=== PATIENT | male | born 1985 | race Caucasian/White ===

== ENCOUNTER 2016-07-21 05:59 | Inpatient (IN) | payer OTHER ==
[~2016-07-21] VITALS: Ht 180.3 cm; Wt 95.0 kg
[2016-07-21 06:47] LABS: MEAN CORPUSCULAR HEMOGLOBIN 32.9 pg (27.0-33.0); MEAN CORPUSCULAR HGB CONC 34.9 g/dl (32.0-36.5); MEAN CORPUSCULAR VOLUME 94.4 fl (80.0-96.0); RED CELL DISTRIBUTION WIDTH 12.4 % (11.5-14.5); WHITE BLOOD COUNT 9.8 K/mm3 (4.0-10.0)
[2016-07-21 06:59] LABS: AMPHETAMINES LEVEL URINE NEGATIVE (NEGATIVE); BENZODIAZEPINES URINE NEGATIVE (NEGATIVE); COCAINE METABOLITE URINE NEGATIVE (NEGATIVE); M-AMPHETAMINES LEVEL URINE NEGATIVE (NEGATIVE); OPIATES URINE NEGATIVE (NEGATIVE); TRICYCLIC ANTIDEPRESS URINE NEGATIVE (NEGATIVE)
[2016-07-21 07:16] LABS: ALBUMIN/GLOBULIN RATIO 1.33 (1.00-1.93); ALKALINE PHOSPHATASE 91 U/L (45-117); ALT/SGPT 32 U/L (12-78); ANION GAP 10 MEQ/L (8-16); AST/SGOT 22 U/L (15-37); BILIRUBIN,DIRECT 0.1 MG/DL (0.0-0.2); BILIRUBIN,TOTAL 0.2 MG/DL (0.2-1.0); BLOOD UREA NITROGEN 11 MG/DL (7-18); CALCIUM LEVEL 8.3 MG/DL (8.5-10.1); CARBON DIOXIDE LEVEL 25 MEQ/L (21-32); CHLORIDE LEVEL 110 MEQ/L (98-107); CREATININE FOR GFR 1.14 MG/DL (0.70-1.30); GLOMERULAR FILTRATION RATE > 60.0 (>60); GLUCOSE, FASTING 98 MG/DL (70-105); POTASSIUM SERUM 4.1 MEQ/L (3.5-5.1); SODIUM LEVEL 145 MEQ/L (136-145)
[2016-07-21] MEDS ORDERED: MOM 30ML SUSPENSION UDC PO PRN (12:30)
[2016-07-21] MEDS ORDERED: MAALOX 30 ML SUSP *UDC PO PRN (12:30)
--- NOTE | 2016-07-21 14:43 | EDDOCDS ---
Nurse's Notes [facility] Name: Steve Simmons Age: 31 yrs Sex: Male : 1985 Arrival Date: 07/21/2016 Time: 05:59 Bed [facility] Private MD: Diagnosis: Major depressive disorder, single episode Presentation: 07/21 06:03 Presenting complaint: police report, called to residence by neighbor, report pt was in sls1 domestic dispute with SO, state he went into hallway with showcase maker knife and made threats to harm himself. Pt and SO recently . Pt denies SI or HI, denies events happened Police also report pt living in deplorable conditions. Mental Health Triage Level: Level 2: The patient was brought to the ED for evaluation because of a legal pickup order. Adult Sepsis Screening: The patient does not have new or worsening altered mentation. Patient's respiratory rate is less than 22. Systolic blood pressure is greater than 100. Patient has a qSOFA score of 0- Negative Sepsis Screen. Status: Patient is not a dental service technician or dependent. Suicide/Homicide risk assessment- Patient denies SI and HI but presents with another emotional, behavioral or other mental health complaint. The patient reports that he/she has not been admitted to an inpatient mental health facility in the last 30 days. The patient reports that he/she does not have a recent or current history of substance abuse. The patient reports that he/she has no prior history of suicide attempt and/or organized plan. The patient reports that he/she has experienced a significant life altering event in the last 30 days. The patient reports that he/she lacks adequate social support. Transition of care: patient was received from. 06:03 Acuity: JEN Level 3 sls1 06:03 Method Of Arrival: Police Car sls1 Triage Assessment: 06:05 General: Appears unkempt, Behavior is cooperative, restless. Pain: Denies pain. Pt sls1 Declines HIV testing. The patient is triaged at the bedside. See Assessment in Nurses Notes section of ED record. Neurological: Level of Consciousness is awake, alert. Respiratory: Airway is patent Respiratory effort is even, unlabored, Respiratory pattern is regular, symmetrical. Derm: pt has multiple scabs to area. Historical: - Allergies: no known allergies; - Home Meds: 1. none - PMHx: none; - PSHx: none; - Social history: Smoking status: Patient uses tobacco products, current every day smoker. No barriers to communication noted, The patient speaks fluent Mauritian, Speaks appropriately for age. - Family history: Not pertinent. - : The pt / caregiver states he / she is not on anticoagulants. Home medication list is obtained from the patient. - Exposure Risk Screening:: None identified. Screenin:08 Screening information is obtained from the patient. Fall risk: No risks identified. sls1 Assistance ADL's: requires no assistance with activities of daily living. Abuse/DV Screen: The patient / caregiver reports he/she is: not in a situation that causes fear, pain or injury. Nutritional screening: No deficits noted. Advance Directives: Further advance directive information is declined. home support is adequate. Assessment: 06:08 General: Appears in no apparent distress, see triage assessment. sls1 06:09 General: Appears distressed, pt is pacing the room, standing in corner then sitting on mf4 the ground. Appears to be talking to self . Behavior is agitated, anxious, cooperative, restless. Respiratory: Airway is patent Respiratory effort is even, unlabored. 07:30 General: Behavior is agitated, cooperative, Pt pacing room when this specification writer entered. Pt hs1 speaks calmly and is cooperative. Pt upset about being here and is aware of time line. A Emanuel PSA also in to speak with patient regarding time line. Pt states he refuses breakfast. Pt aware of who to speak with if needs arise. . 08:40 General: Pt sitting in room in corner. Pt continues to be cooperative however flat. . hs1 09:00 General: Appears in no apparent distress, comfortable, Behavior is cooperative, ttb pleasant, quiet. 09:00 General: pt resting on stretcher. Denies wanting breakfast. Left in room at this time ttb in case pt does want to eat. Security monitoring pt. No distresses noted. No requests at this time. . Pain: Denies pain. Neurological: Level of Consciousness is awake, alert, Oriented to person, place, time. Cardiovascular: Chest pain is denied. Respiratory: No deficits noted. Airway is patent Denies cough, shortness of breath. GI: Denies nausea, vomiting, pain. Derm: Skin is normal. 10:00 Reassessment: Patient appears in no apparent distress at this time. General: Appears in ttb no apparent distress, comfortable. Neurological: Level of Consciousness is awake, alert. Respiratory: No deficits noted. Airway is patent. 10:51 General: report given to next RN, Carmella to continue care. Pt resting on stretcher. ttb NAD noted. . Respiratory: Airway is patent Respiratory effort is even, unlabored. 11:25 General: Behavior is cooperative, pt presently sitting in corner --per security pt ms2 sitting there since ed arrival. Respiratory: Airway is patent Respiratory effort is even, unlabored, Respiratory pattern is regular, symmetrical. :. Derm: Skin is pink, warm & dry. 12:11 General: pt now pacing about room-responds appropriately but short cliiped responces. ms2 Neurological: No deficits noted. Respiratory: Respiratory effort is even, unlabored. :. :. Derm: Skin is pink, warm & dry. pt has old healed laceration running from upper mid arm down entire length of arm. 12:50 General: pacing about room. Respiratory: No deficits noted. Derm: Skin is pink, warm & ms2 dry. 13:34 General: Appears in no apparent distress, pt had used the phone ---appears less anxious ms2 after this -present,y lying on stretcher. Respiratory: No deficits noted. Derm: Skin is pink, warm & dry. 14:38 General: Appears in no apparent distress, comfortable, Behavior is cooperative. Pain: ms2 Denies pain. Neurological: Level of Consciousness is awake, alert, obeys commands. Respiratory: No deficits noted. Airway is patent Respiratory effort is even, unlabored, Respiratory pattern is regular, symmetrical. GI: Abdomen is flat, non- distended. Derm: Skin is pink, warm & dry. Musculoskeletal: Range of motion intact in all extremities. Mental Health Eval: 06:17 Referral Information: Evaluation referral is generated by a police agency: [employer] on cl 9.41.. The patient was referred for evaluation because Pt reportedly had knife and made suicidal comments, neighbors called 911.. 11:24 Mental health consult is initiated at 11:00. Status: The patient is not a [facility] dental service technician or dependent. [facility] Behavioral Health: The patient is not an established patient of [facility] Behavioral Health. 11:26 Subjective: The patients chief complaint is Pt's chief complaint is "I got upset 9 yesterday and disturbed other people." Pt stated that him and his girlfriend of nine years broke up about two moths ago. Pt stated that they are currently living together with their two children. Pt stated that he wouldn't do therapy with ex girlfriend, and blames himself for the break up. Pt stated that his ex girlfriend has a new boyfriend. Pt stated they were talking last night and things got out of control. Pt denies SI/HI but stated "I am going to tell you what you want to hear so I can get out of here". Pt stated they moved back to [place] about 2 years ago to "start over". Pt stated his sleeping is sporadic and drinks alcohol until he passes out. . Delusions are denied. Patient's mood is angry, anxious, depressed, hopeless, Hallucinations are denied. Pt was pacing back and forth during the interview. Pt was crying on and off during interview with this specification writer. Mental Health history: no relevant mental health problems or treatments. Mental Health Admissions: None. Current Outpatient Mental Health Services: None. Current living environment is The patient currently lives ex girlfriend, six year old daughter, and three year old son. . Patient presents to Emergency Department with the following symptoms within the past 2 weeks: aggression, alcohol abuse, anger, decreased appetite, depressed mood, excessive guilt, feelings of helplessness/hopelessness, relational problem, sleep disturbance - erratic. Substance abuse: Patient uses beer, two six packs of 16 oz. cans. daily. Last use was Last night. . Patient uses marijuana weekly Patient uses tobacco Frequency daily. Mental status exam: Patients appearance is appropriate, Patient's behavior is Pt was cooperative with answering questions from this specification writer. Patient was pacing back and forth during the interview making no eye contact. . Speech is mumbled. Affect is Pt was crying during interview with this specification writer. . Mood is angry. depressed. Hallucinations are denied. Appetite is poor. Memory is good. Energy level is normal. Content of thought is depressive. Thought process is intact. Cognitive level is oriented to person, place, time and situation Patient's insight is fair. Judgement is poor. Rapport with interviewer is Pt was cooperative during interview, however patient would not make eye contact and continued to pace. . Suicidal Ideation is denied. Homicidal ideation is denied. Disposition: Medically cleared for disposition by Darya Young MD. 12:26 [facility] Admission Criteria: The patient is experiencing suicidal ideation. The patient kh9 requires continuous observation and/or control to protect self, others or property. Legal Status: Patient's legal status will be Emergency admission: . [place] Safe Act: [place] Safe Act is applicable to this patient. The patient poses a risk to self or other and the Nursing Aquaculture Program Director has been notified. He/She will enter the patient's data. 13:17 DSM-V Differential Diagnosis: Unspecified Depressive Disorder (F32.9). kh9 14:30 Pt states preferred pharmacy is: [facility] on [address]. 9 Vital Signs: 06:06 Weight 79.38 kg; Height 5 ft. 11 in. (180.34 cm); Pain 0/10; sls1 06:06 BP 149 / 97; Pulse 114; Resp 18; Temp 98.4(TE); Pulse Ox 95% on R/A; Pain 0/10; mf4 09:02 BP 125 / 80; Pulse 65; Resp 18; Temp 97.6(O); Pulse Ox 98% on R/A; dpm 14:35 BP 158 / 100; Pulse 74; Resp 18; Pulse Ox 97% on R/A; dpm 06:06 Body Mass Index 24.41 (79.38 kg, 180.34 cm) [facility] Vitals: 06:05 Log In time N/A- police car arrival. [facility] ED Course: 05:59 Patient visited by Amy Peña, Reg. 2 05:59 Patient moved to Waiting 2 06:03 Patient moved to [address] 06:05 Triage Initiated sls1 06:08 The patient / caregiver is instructed regarding the plan of care and ED course. Patient sls1 has correct armband on for positive identification. Placed in psych safe attire. Call light in reach. 06:13 Dwight Lamar DO is Attending Physician. mm11 06:14 Patient visited by Dwight Lamar DO. mm11 06:16 Patient visited by David Dinh. [facility] 06:16 Pt greeted and oriented to ED. Patient advised of names of staff involved in care, [facility] location of call [place], wait times and NPO status. Accompanied by Law Enforcement, [employer] on , Patient has correct armband on for positive identification. Placed in psych safe attire. Bed in low position. Call light in reach. Side rails up X 1. Security observing. Property removed, inventory done, secured in belongings bag- Placed in locker 3. Door closed. Noise minimized. Moved to private room. Verbal reassurance given. Warm blanket given. Pillow given. Psych Safety Check: Location: Psych Room. Visual Assessment: cooperative \\T\\ this time. 06:29 Patient visited by Dwight Lamar DO. mm11 06:30 Patient visited by David Dinh. mas 06:39 Acetaminophen Level Sent. mf4 06:39 Basic Metabolic Profile Sent. mf4 06:39 Complete Blood Count Sent. mf4 06:39 Drug Eval Toxicology ED Only Sent. mf4 06:39 Ethyl Alcohol (ethanol) Sent. mf4 06:39 Liver Profile Sent. mf4 06:39 Salicylate Level Sent. mf4 06:39 Thyroid Stimulating Hormone Sent. mf4 06:45 Patient visited by David Dinh. mas 07:00 Patient visited by Ankur Ziegler. dpm 07:09 Attending Physician role handed off by Dwight Lamar DO sd1 07:09 Darya Young MD is Attending Physician. sd1 07:15 Patient visited by Ankur Ziegler. dpm 07:34 Patient visited by Veena Shaver RN. hs1 07:36 Patient visited by Ankur Ziegler. dpm 07:46 Patient visited by Ankur Ziegler. dpm 08:01 Patient visited by Ankur Ziegler. dpm 08:11 [facility] Payment Agreement was scanned into [employer] and attached to record. mpb 08:16 Patient visited by Ankur Ziegler. dpm 08:29 Patient visited by Ankur Ziegler. dpm 08:44 Patient visited by Ankur Ziegler. dpm 08:59 Patient visited by Ankur Ziegler. dpm 09:00 Security observing. ttb 09:16 Patient visited by Ankur Ziegler. dpm 09:32 Patient visited by Ankur Ziegler. dpm 09:51 Patient visited by Ankur Ziegler. dpm 09:55 Patient visited by Elisa Turner RN. ttb 10:00 Security observing. ttb 10:00 No IV's were initiated during this patient's visit. Labs drawn. (by ED staff). Urine ttb collected. 10:06 Patient visited by Ankur Ziegler. dpm 10:17 Patient visited by Ankur Ziegler. dpm 10:32 Patient visited by Ankur Ziegler. dpm 10:47 Patient visited by Ankur Ziegler. dpm 11:03 Patient visited by Ankur Ziegler. dpm 11:15 Patient visited by Ankur Ziegler. dpm 11:29 Patient visited by Ankur Ziegler. dpm 11:42 Patient visited by Ke Baltazar RN. ms2 11:44 Patient visited by Ankur Ziegler. dpm 11:44 Security observing. ms2 11:59 Patient visited by Ankur Ziegler. dpm 12:13 Security observing. ms2 12:42 Patient visited by Ankur Ziegler. dpm 12:50 Security observing. Diet: Patient given regular meal. ms2 13:01 Patient visited by Ankur Ziegler. dpm 13:13 [facility] Legal paperwork was scanned into [employer] and attached to record. jl 13:32 Sukhdev Xiao is Hospitalizing Provider. sd1 13:35 Security observing. ms2 13:46 Patient visited by Ankur Ziegler. dpm 14:06 Patient visited by Ankur Ziegler. dpm 14:21 Patient visited by Ankur Ziegler. dpm 14:36 Patient visited by Ankur Ziegler. dpm 14:38 The patient / caregiver is instructed regarding the plan of care and ED course. ms2 Security observing. 14:39 No procedures done that require assistance. ms2 Attachments: 13:13 [facility] Legal paperwork jl Order Results: Lab Order: Acetaminophen Level; SPEC'M 07/21/16 06:36 Test: ACETAMINOPHEN LEVEL; Value: < 2.0; Range: 10.0-30.0; Abnormal: Below low normal; Units: UG/ML; Status: F Lab Order: Basic Metabolic Profile; SPEC'M 07/21/16 06:36 Test: GLUCOSE, FASTING; Value: 98; Range: 70-105; Units: MG/DL; Status: F Test: BLOOD UREA NITROGEN; Value: 11; Range: 7-18; Units: MG/DL; Status: F Test: CREATININE FOR GFR; Value: 1.14; Range: 0.70-1.30; Units: MG/DL; Status: F Test: GLOMERULAR FILTRATION RATE; Value: > 60.0; Range: >60; Status: F Test: SODIUM LEVEL; Value: 145; Range: 136-145; Units: MEQ/L; Status: F Test: POTASSIUM SERUM; Value: 4.1; Range: 3.5-5.1; Units: MEQ/L; Status: F Test: CHLORIDE LEVEL; Value: 110; Range: 98-107; Abnormal: Above high normal; Units: MEQ/L; Status: F Test: CARBON DIOXIDE LEVEL; Value: 25; Range: 21-32; Units: MEQ/L; Status: F Test: ANION GAP; Value: 10; Range: 8-16; Units: MEQ/L; Status: F Test: CALCIUM LEVEL; Value: 8.3; Range: 8.5-10.1; Abnormal: Below low normal; Units: MG/DL; Status: F Test Note: ; Units are mL/min/1.73 m2 Chronic Kidney Disease Staging per NKF: Stage I & II GFR >=60 Normal to Mildly Decreased Stage III GFR 30-59 Moderately Decreased Stage IV GFR 15-29 Severely Decreased Stage V GFR <15 Very Little GFR Left ESRD GFR <15 on ADVERTISING INSERTER Lab Order: Complete Blood Count; [facility]' 07/21/16 06:36 Test: WHITE BLOOD COUNT; Value: 9.8; Range: 4.0-10.0; Units: K/mm3; Status: F Test: RED BLOOD COUNT; Value: 5.46; Range: 4.30-6.10; Units: M/mm3; Status: F Test: HEMOGLOBIN; Value: 18.0; Range: 14.0-18.0; Units: g/dl; Status: F Test: HEMATOCRIT; Value: 51.5; Range: 42.0-52.0; Units: %; Status: F Test: MEAN CORPUSCULAR VOLUME; Value: 94.4; Range: 80.0-96.0; Units: fl; Status: F Test: MEAN CORPUSCULAR HEMOGLOBIN; Value: 32.9; Range: 27.0-33.0; Units: pg; Status: F Test: MEAN CORPUSCULAR HGB CONC; Value: 34.9; Range: 32.0-36.5; Units: g/dl; Status: F Test: RED CELL DISTRIBUTION WIDTH; Value: 12.4; Range: 11.5-14.5; Units: %; Status: F Test: PLATELET COUNT, AUTOMATED; Value: 226; Range: 150-450; Units: k/mm3; Status: F Lab Order: Drug Eval Toxicology ED Only; SPEC'M 07/21/16 06:36 Test: AMPHETAMINES LEVEL URINE; Value: NEGATIVE; Range: NEGATIVE; Status: F Test: M-AMPHETAMINES LEVEL URINE; Value: NEGATIVE; Range: NEGATIVE; Status: F Test: BARBITURATES URINE; Value: NEGATIVE; Range: NEGATIVE; Status: F Test: BENZODIAZEPINES URINE; Value: NEGATIVE; Range: NEGATIVE; Status: F Test: CANNABINOIDS URINE; Value: POSITIVE; Range: NEGATIVE; Abnormal: Above high normal; Status: F Test: COCAINE METABOLITE URINE; Value: NEGATIVE; Range: NEGATIVE; Status: F Test: OPIATES URINE; Value: NEGATIVE; Range: NEGATIVE; Status: F Test: PHENCYCLIDINE URINE; Value: NEGATIVE; Range: NEGATIVE; Status: F Test: TRICYCLIC ANTIDEPRESS URINE; Value: NEGATIVE; Range: NEGATIVE; Status: F Test Note: ; FALSE POSITIVE RESULTS CAN BE CAUSED BY THE USE OF PANTOPRAZOLE (PROTONIX). Lab Order: Ethyl Alcohol (ethanol); SPEC'M 07/21/16 06:36 Test: ETHYL ALCOHOL (ETHANOL); Value: 0.191; Range: 0.000-0.010; Abnormal: Above high normal; Units: %; Status: F Lab Order: Liver Profile; SPEC'M 07/21/16 06:36 Test: AST/SGOT; Value: 22; Range: 15-37; Units: U/L; Status: F Test: ALT/SGPT; Value: 32; Range: 12-78; Units: U/L; Status: F Test: ALKALINE PHOSPHATASE; Value: 91; Range: 45-117; Units: U/L; Status: F Test: BILIRUBIN,TOTAL; Value: 0.2; Range: 0.2-1.0; Units: MG/DL; Status: F Test: BILIRUBIN,DIRECT; Value: 0.1; Range: 0.0-0.2; Units: MG/DL; Status: F Test: TOTAL PROTEIN; Value: 7.0; Range: 6.4-8.2; Units: GM/DL; Status: F Test: ALBUMIN; Value: 4.0; Range: 3.2-5.2; Units: GM/DL; Status: F Test: ALBUMIN/GLOBULIN RATIO; Value: 1.33; Range: 1.00-1.93; Status: F Lab Order: Salicylate Level; SPEC'M 07/21/16 06:36 Test: SALICYLATE LEVEL; Value: 5.4; Range: 5.0-30.0; Units: MG/DL; Status: F Lab Order: Thyroid Stimulating Hormone; SPEC'M 07/21/16 06:36 Test: THYROID STIMULATING HORMONE; Value: 1.390; Range: 0.358-3.740; Units: uIU/ML; Status: F Outcome: 13:32 Decision to Hospitalize by Provider. sd1 14:39 Discharge Assessment: patient administered narcotics - no. The following High Risk ms2 Discharge criteria are identified: None. Admitted to Psych accompanied by tech, via wheelchair, with chart. Condition: stable. No special radiology studies were completed. 14:43 Patient left the ED. ms2 Signatures: Darya Young MD MD sd1 Ke Baltazar,RN RN ms2 Sesar Ibrahim, PSA PSA Manjit Jo, PSA PSA Dwight Espino, DO DO mm11 Veena Shaver RN RN hs1 David Dinh Shannon RN RN sls1 Ke Wright,GIUSEPPE SMITHN mf4 Ankur Ziegler dpm, Teresa RN RN ttb noemi valencia Michael, Reg Reg mpb Amy Peña, Reg Reg hs2 Corrections: (The following items were deleted from the chart) 06:07 06:03 Presenting complaint: police report, called to residence by neighbor, report pt dorothy was in domestic dispute with SO, state he went into hallway with showcase maker knife and made threats to harm himself. Pt and SO recently . Pt denies SI or HI, denies events happened sls1 06:09 06:06 BP 149 / 97; Resp 18bpm; Pulse Ox 95% RA; Temp 98.4F Temporal; Pain 0/10; mf4 mf4 MTDD
--- NOTE | 2016-07-21 14:43 | EDDOCDS ---
Physician Documentation [facility] Name: Steve Simmons Age: 31 yrs Sex: Male : 1985 Arrival Date: 07/21/2016 Time: 05:59 Bed U3 Private MD: Disposition: 07/21/16 13:32 Hospitalization ordered by Sukhdev Xiao for Inpatient Admission. Preliminary diagnosis is Major depressive disorder, single episode. - Bed requested for Admit. - Status is Inpatient Admission. ms2 - Condition is Stable. - Problem is new. - Symptoms are unchanged. Historical: - Allergies: no known allergies; - Home Meds: 1. none - PMHx: none; - PSHx: none; - Social history: Smoking status: Patient uses tobacco products, current every day smoker. No barriers to communication noted, The patient speaks fluent Irish, Speaks appropriately for age. - Family history: Not pertinent. - : The pt / caregiver states he / she is not on anticoagulants. Home medication list is obtained from the patient. - Exposure Risk Screening:: None identified. Vital Signs: 07/21 06:06 Weight 79.38 kg / 175 lbs; Height 5 ft. 11 in. (180.34 cm); Pain 0/10; sls1 06:06 BP 149 / 97; Pulse 114; Resp 18; Temp 98.4(TE); Pulse Ox 95% on R/A; Pain 0/10; mf4 09:02 BP 125 / 80; Pulse 65; Resp 18; Temp 97.6(O); Pulse Ox 98% on R/A; dpm 14:35 BP 158 / 100; Pulse 74; Resp 18; Pulse Ox 97% on R/A; dpm 06:06 Body Mass Index 24.41 (79.38 kg, 180.34 cm) sls1 MDM: 06:30 Consult PFS/PSA/Rail Project Engineer ordered. mm11 06:30 Consult PFS/PSA/Rail Project Engineer: Patient's case requires discussion with on-call mm11 Psychiatrist ordered. 06:30 PSA/PFS to call Nursing Banquet Waiter/Waitress, to enter patient data on [place] Safe Act if patient mm11 involuntarily admitted or transferred for SI or HI ordered. 06:30 Confirm accurate psychiatric medication list and times of last dosage ordered. mm11 06:30 Detain Pt Until Medically/PFS Cleared ordered. mm11 06:31 Acetaminophen Level Ordered. EDMS 06:31 Basic Metabolic Profile Ordered. EDMS 06:31 Complete Blood Count Ordered. EDMS 06:31 Drug Eval Toxicology ED Only Ordered. EDMS 06:31 Ethyl Alcohol (ethanol) Ordered. EDMS 06:31 Liver Profile Ordered. EDMS 06:31 Salicylate Level Ordered. EDMS 06:31 Thyroid Stimulating Hormone Ordered. EDMS 06:40 REGULAR DIET PLASTIC STAFFORD+DIET ordered. EDMS 07:08 Drug Eval Toxicology ED Only Reviewed. mm11 07:08 Complete Blood Count Reviewed. mm11 07:31 Financial registration complete. mpb 07:37 Acetaminophen Level Reviewed. sd1 07:37 Basic Metabolic Profile Reviewed. sd1 07:37 Ethyl Alcohol (ethanol) Reviewed. sd1 07:37 Liver Profile Reviewed. sd1 07:37 Salicylate Level Reviewed. sd1 07:37 Thyroid Stimulating Hormone Reviewed. sd1 08:11 [facility] Payment Agreement was scanned into [employer] and attached to record. mpb 11:22 REGULAR DIET PLASTIC STAFFORD+DIET ordered. EDMS 12:12 Consult PFS/PSA/Rail Project Engineer complete. kh9 12:12 Consult PFS/PSA/Rail Project Engineer: Patient's case requires discussion with on-call [facility] Psychiatrist complete. 12:25 PSA/PFS to call Nursing Banquet Waiter/Waitress, to enter patient data on [place] Safe [place] if patient 9 involuntarily admitted or transferred for SI or HI complete. 12:38 Admit to [facility]: ordered. EDMS 12:38 REGULAR DIET ordered. EDMS 13:13 [facility] Legal paperwork was scanned into [employer] and attached to record. rosaura Signatures: Dispatcher [employer] EDRI Darya Young MD MD sd1 Ke Baltazar,RN RN ms2 Sesar Ibrahim PSA PSA Dwight Lezama, DO DO mm11 Jacqui Cody, RN RN sls1 noemi valencia kh9 Norbert Tinsley, Toni Reg mpb The chart was reviewed and I authenticate all verbal orders and agree with the evaluation and treatment provided.Attachments: 08:11 ON LICENSE OF [facility] Payment Agreement mpb MTDD
[2016-07-21 15:11] VITALS: BP 139/86
[2016-07-21] MEDS ORDERED: THIAMINE 100 MG TAB PO ONE (17:30)
[2016-07-21] MEDS: MULTIVITAMINS/MINERALS THERAP 1 TAB PO SCH (17:50)
[2016-07-21] MEDS: FOLIC ACID 1 MG TAB PO SCH (17:50)
[2016-07-21] MEDS: NICOTINE POLACRILEX 2 MG GUM PO PRN ×2 (17:51→23:13)
[2016-07-21 22:47] VITALS: BP 143/87
[2016-07-21] MEDS: traZODone 50 MG TAB PO PRN (23:13)
[2016-07-22 06:42] VITALS: BP 136/96
[2016-07-22] MEDS: FOLIC ACID 1 MG TAB PO SCH (09:29)
[2016-07-22] MEDS: THIAMINE 100 MG TAB PO SCH ×2 (09:29→21:07)
[2016-07-22] MEDS: MULTIVITAMINS/MINERALS THERAP 1 TAB PO SCH (09:29)
[2016-07-22 09:42] VITALS: BP 139/87
[2016-07-22 11:09] VITALS: BP 164/89
[2016-07-22] MEDS: NICOTINE POLACRILEX 2 MG GUM PO PRN ×3 (15:03→23:24)
[2016-07-22 16:42] VITALS: BP 152/93
[2016-07-22] MEDS: LORazepam 2 MG TAB PO PRN (16:47)
[2016-07-22 18:00] VITALS: BP 152/93
--- NOTE | 2016-07-22 21:36 | MHHPE ---
DATE OF ADMISSION: 07/21/2016 This is the first psychiatric admission for this 31-year-old white male because of suicidal ideation. ADMISSION VITAL SIGNS: Temperature 99.1, pulse 73, respirations 16, blood pressure 139/86. LEGAL TYPE: 939 HISTORY OF PRESENT ILLNESS: The patient's girlfriend broke up with him approximately two months ago because of his drug and alcohol use and he was in remorse last night because now she has found somebody else and is with them. He was threatening to kill himself by cutting his throat with a library aide knife. The girlfriend called the police and the patient was picked up by them and brought to the emergency room. He has a long history of drug and alcohol problems. The patient has been cutting and burning himself since the age of 15. On admission to the unit, his suicide lethality score was 24. PAST PSYCHIATRIC HISTORY: The patient denies any previous formal contact with psychiatry. As noted above, he has been cutting and burning himself since the age of 15. His last drink was approximately 2 a.m. of the night of admission. SOCIAL HISTORY: The patient was born in [place]. He dropped out of high school one month before graduating from [employer]. 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 However, he has been unemployed for the past two years once his father became too ill to continue with the pawn shop. The patient could not quite follow through with getting a GED from [employer] and his [employer] program. The patient's father left when he was a teenager and he has had several different stepfathers, which led him to leaving [facility] and being on his own since the age of 16. He was living on the streets or in motel rooms and notes that "it was easier to drink and do drugs at that time then to finish school.". FAMILY HISTORY: Is contributory in that the patient notes that his father's sister was institutionalized at one point. ABUSE: The patient denies history of sexual abuse. LEGAL HISTORY: The patient had misdemeanor charges against him for possession of pot when he was a teenager. ALLERGIES: The patient denies any current allergies. MEDICAL HISTORY: The patient denies cardiac or thyroid or any other disease state. REVIEW OF SYSTEMS: The patient has poor dentition and has poor dentition, is missing six to eight teeth. MENTAL STATUS EXAMINATION: Reveals a thin and fatigued 31-year-old, who appears older than his stated age. He is balding and has a goatee that is shaped to his barrera. The patient freely admits that he does not want to be here and so this makes him a vague historian, who will minimize his reports to me. He says that he is bother by "crappy thoughts", but will not elaborate on what they are. He grows tearful at moments when he describes losing his girlfriend. He denies hearing voices, but again is vague about this, saying that it is thoughts inside his head that are bothering him. The patient is vague about his suicidal intentions with me, but again as noted above with his suicide lethality scale that was completed with the nurse who did the admission note. His suicide lethality score came out as 24 with frequency of thoughts being moderate. Availability of weapons moderate, ambivalent current will to live, feelings of depression all rated as moderate. It is significant to note that his arms are literally covered with circular scars from where he has burned himself in the past. There is no evidence for a thought disorder. The patient is fully oriented. Judgment and insight are considered to be quite impaired and he is still considered to be dangerous to himself. DIAGNOSTIC IMPRESSION: 1. Unspecified depression. TREATMENT PLAN: The patient will be assessed for withdrawal with a Clinical [place] Withdrawal Assessment (CIWA) protocol and will consider beginning an antidepressant medication, such as Effexor once we are clear about his withdrawal state. The patient was admitted as a 939 legal status with permission and his family will be contacted and the data base will be expanded. His medication regimen will be reviewed and changed accordingly. He will be provided with a protected environment. He will be treated with individual, group and Milieu therapies. He will receive supportive psychoeducation. Discharge planning will commence immediately. Length of stay will be between 7 and 10 days. Outpatient followup will be strongly recommended. Treatment plan will focus initially on risk for suicide, poor impulse control and substance abuse.
[2016-07-22] MEDS: BACITRACIN OINT 30GM TOP SCH (23:48)
[2016-07-23 07:03] VITALS: BP 144/86
[2016-07-23] MEDS: FOLIC ACID 1 MG TAB PO SCH (08:11)
[2016-07-23] MEDS: MULTIVITAMINS/MINERALS THERAP 1 TAB PO SCH (08:12)
[2016-07-23] MEDS: BACITRACIN OINT 30GM TOP SCH ×2 (08:12→22:00)
[2016-07-23] MEDS: THIAMINE 100 MG TAB PO SCH ×2 (08:12→21:59)
[2016-07-23] MEDS: NICOTINE POLACRILEX 2 MG GUM PO PRN ×2 (08:16→22:00)
[2016-07-23 09:36] VITALS: BP 140/92
[2016-07-23] MEDS: LORazepam 2 MG TAB PO PRN ×3 (09:39→14:45)
[2016-07-23] MEDS: ACETAMINOPHEN TAB 650MG DOSE (2X325MG) PO PRN (09:39)
[2016-07-23 13:03] VITALS: BP 148/90
[2016-07-23 14:43] VITALS: BP 161/105
--- NOTE | 2016-07-23 15:44 | EDDOCDS ---
Physician Documentation [facility] Name: Steve Simmons Age: 31 yrs Sex: Male : 1985 Arrival Date: 07/21/2016 Time: 05:59 Bed U3 Private MD: Disposition: 07/21/16 13:32 Hospitalization ordered by Sukhdev Xiao for Inpatient Admission. Preliminary diagnosis is Major depressive disorder, single episode. - Bed requested for Admit. - Status is Inpatient Admission. ms2 - Condition is Stable. - Problem is new. - Symptoms are unchanged. Historical: - Allergies: no known allergies; - Home Meds: 1. none - PMHx: none; - PSHx: none; - Social history: Smoking status: Patient uses tobacco products, current every day smoker. No barriers to communication noted, The patient speaks fluent Welsh, Speaks appropriately for age. - Family history: Not pertinent. - : The pt / caregiver states he / she is not on anticoagulants. Home medication list is obtained from the patient. - Exposure Risk Screening:: None identified. Vital Signs: 07/21 06:06 Weight 79.38 kg / 175 lbs; Height 5 ft. 11 in. (180.34 cm); Pain 0/10; sls1 06:06 BP 149 / 97; Pulse 114; Resp 18; Temp 98.4(TE); Pulse Ox 95% on R/A; Pain 0/10; mf4 09:02 BP 125 / 80; Pulse 65; Resp 18; Temp 97.6(O); Pulse Ox 98% on R/A; dpm 14:35 BP 158 / 100; Pulse 74; Resp 18; Pulse Ox 97% on R/A; dpm 06:06 Body Mass Index 24.41 (79.38 kg, 180.34 cm) sls1 MDM: 06:30 Consult PFS/PSA/Security Control Assessor ordered. mm11 06:30 Consult PFS/PSA/Security Control Assessor: Patient's case requires discussion with on-call mm11 Psychiatrist ordered. 06:30 PSA/PFS to call Nursing Production Intern, to enter patient data on [place] Safe [place] if patient mm11 involuntarily admitted or transferred for SI or HI ordered. 06:30 Confirm accurate psychiatric medication list and times of last dosage ordered. mm11 06:30 Detain Pt Until Medically/PFS Cleared ordered. mm11 06:31 Acetaminophen Level Ordered. EDMS 06:31 Basic Metabolic Profile Ordered. EDMS 06:31 Complete Blood Count Ordered. EDMS 06:31 Drug Eval Toxicology ED Only Ordered. EDMS 06:31 Ethyl Alcohol (ethanol) Ordered. EDMS 06:31 Liver Profile Ordered. EDMS 06:31 Salicylate Level Ordered. EDMS 06:31 Thyroid Stimulating Hormone Ordered. EDMS 06:40 REGULAR DIET PLASTIC STAFFORD+DIET ordered. EDMS 07:08 Drug Eval Toxicology ED Only Reviewed. mm11 07:08 Complete Blood Count Reviewed. mm11 07:31 Financial registration complete. mpb 07:37 Acetaminophen Level Reviewed. sd1 07:37 Basic Metabolic Profile Reviewed. sd1 07:37 Ethyl Alcohol (ethanol) Reviewed. sd1 07:37 Liver Profile Reviewed. sd1 07:37 Salicylate Level Reviewed. sd1 07:37 Thyroid Stimulating Hormone Reviewed. sd1 08:11 [facility] Payment Agreement was scanned into [employer] and attached to record. mpb 11:22 REGULAR DIET PLASTIC STAFFORD+DIET ordered. EDMS 12:12 Consult PFS/PSA/Security Control Assessor complete. kh9 12:12 Consult PFS/PSA/Security Control Assessor: Patient's case requires discussion with on-call [facility] Psychiatrist complete. 12:25 PSA/PFS to call Nursing Production Intern, to enter patient data on [place] if patient 9 involuntarily admitted or transferred for SI or HI complete. 12:38 Admit to [facility]: ordered. EDMS 12:38 REGULAR DIET ordered. EDMS 13:13 [facility] Legal paperwork was scanned into [employer] and attached to record. rosaura 19:57 T-Sheet-- Draft Copy was scanned into [employer] and attached to record. gb Signatures: Dispatcher [employer] EDHI Darya Young MD MD sd1 Ke Baltazar,RN RN ms2 Sesar Ibrahim, PSA PSA jl Mima [place], Reg Reg gb Dwight Lamar DO DO mm11 Jacqui Cody, RN RN sls1 noemi valencia kh9 Norbert Tinsley, Reg Reg mpb The chart was reviewed and I authenticate all verbal orders and agree with the evaluation and treatment provided.Attachments: 08:11 [facility] Payment Agreement mpb 19:57 T-Sheet-- Draft Copy gb Chart Complete MTDD
--- NOTE | 2016-07-23 15:44 | EDDOCDS ---
Physician Documentation [facility] Name: Steve Simmons Age: 31 yrs Sex: Male : 1985 Arrival Date: 07/21/2016 Time: 05:59 Bed U3 Private MD: Disposition: 07/21/16 13:32 Hospitalization ordered by Sukhdev Xiao for Inpatient Admission. Preliminary diagnosis is Major depressive disorder, single episode. - Bed requested for Admit. - Status is Inpatient Admission. ms2 - Condition is Stable. - Problem is new. - Symptoms are unchanged. Historical: - Allergies: no known allergies; - Home Meds: 1. none - PMHx: none; - PSHx: none; - Social history: Smoking status: Patient uses tobacco products, current every day smoker. No barriers to communication noted, The patient speaks fluent Yakut, Speaks appropriately for age. - Family history: Not pertinent. - : The pt / caregiver states he / she is not on anticoagulants. Home medication list is obtained from the patient. - Exposure Risk Screening:: None identified. Vital Signs: 07/21 06:06 Weight 79.38 kg / 175 lbs; Height 5 ft. 11 in. (180.34 cm); Pain 0/10; sls1 06:06 BP 149 / 97; Pulse 114; Resp 18; Temp 98.4(TE); Pulse Ox 95% on R/A; Pain 0/10; mf4 09:02 BP 125 / 80; Pulse 65; Resp 18; Temp 97.6(O); Pulse Ox 98% on R/A; dpm 14:35 BP 158 / 100; Pulse 74; Resp 18; Pulse Ox 97% on R/A; dpm 06:06 Body Mass Index 24.41 (79.38 kg, 180.34 cm) sls1 MDM: 06:30 Consult PFS/PSA/Mental Health Worker ordered. mm11 06:30 Consult PFS/PSA/Mental Health Worker: Patient's case requires discussion with on-call mm11 Psychiatrist ordered. 06:30 PSA/PFS to call Nursing Client Advisor, to enter [place] data [place] if patient mm11 involuntarily admitted or transferred for SI or HI ordered. 06:30 Confirm accurate psychiatric medication list and times of last dosage ordered. mm11 06:30 Detain Pt Until Medically/PFS Cleared ordered. mm11 06:31 Acetaminophen Level Ordered. EDMS 06:31 Basic Metabolic Profile Ordered. EDMS 06:31 Complete Blood Count Ordered. EDMS 06:31 Drug Eval Toxicology ED Only Ordered. EDMS 06:31 Ethyl Alcohol (ethanol) Ordered. EDMS 06:31 Liver Profile Ordered. EDMS 06:31 Salicylate Level Ordered. EDMS 06:31 Thyroid Stimulating Hormone Ordered. EDMS 06:40 REGULAR DIET PLASTIC STAFFORD+DIET ordered. EDMS 07:08 Drug Eval Toxicology ED Only Reviewed. mm11 07:08 Complete Blood Count Reviewed. mm11 07:31 Financial registration complete. mpb 07:37 Acetaminophen Level Reviewed. sd1 07:37 Basic Metabolic Profile Reviewed. sd1 07:37 Ethyl Alcohol (ethanol) Reviewed. sd1 07:37 Liver Profile Reviewed. sd1 07:37 Salicylate Level Reviewed. sd1 07:37 Thyroid Stimulating Hormone Reviewed. sd1 08:11 [facility] Payment Agreement was scanned into [employer] and attached to record. mpb 11:22 REGULAR DIET PLASTIC STAFFORD+DIET ordered. EDMS 12:12 Consult PFS/PSA/Mental Health Worker complete. kh9 12:12 Consult PFS/PSA/Mental Health Worker: Patient's case requires discussion with on-call [facility] Psychiatrist complete. 12:25 PSA/PFS to call Nursing Client Advisor, to enter [place] data [place] if patient 9 involuntarily admitted or transferred for SI or HI complete. 12:38 Admit to [facility]: ordered. EDMS 12:38 REGULAR DIET ordered. EDMS 13:13 [facility] Legal paperwork was scanned into [employer] and attached to record. rosaura 19:57 T-Sheet-- Draft Copy was scanned into [employer] and attached to record. gb Signatures: Dispatcher [employer] EDKS Darya Young MD MD sd1 Ke Baltazar,RN RN ms2 Sesar Ibrahim, PSA PSA jl [place], Reg Reg gb Dwight Lamar DO DO mm11 Jacqui Cody, RN RN sls1 noemi valencia kh9 Norbert Tinsley, Reg Reg mpb The chart was reviewed and I authenticate all verbal orders and agree with the evaluation and treatment provided.Attachments: 08:11 [facility] [place] mpb 19:57 T-Sheet-- Draft Copy gb Chart Complete MTDD
--- NOTE | 2016-07-23 15:44 | EDDOCDS ---
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 Pt and SO recently . Pt denies SI or HI, denies events happened Police also report pt living in deplorable conditions. Mental Health Triage Level: Level 2: The patient was brought to the ED for evaluation because of a legal pickup order. Adult Sepsis Screening: The patient does not have new or worsening altered mentation. Patient's respiratory rate is less than 22. Systolic blood pressure is greater than 100. Patient has a qSOFA score of 0- Negative Sepsis Screen. Status: Patient is not a room service clerk or dependent. Suicide/Homicide risk assessment- Patient denies SI and HI but presents with another emotional, behavioral or other mental health complaint. The patient reports that he/she has not been admitted to an inpatient mental health facility in the last 30 days. The patient reports that he/she does not have a recent or current history of substance abuse. The patient reports that he/she has no prior history of suicide attempt and/or organized plan. The patient reports that he/she has experienced a significant life altering event in the last 30 days. The patient reports that he/she lacks adequate social support. Transition of care: patient was received from. 06:03 Acuity: JEN Level 3 sls1 06:03 Method Of Arrival: Police Car sls1 Triage Assessment: 06:05 General: Appears unkempt, Behavior is cooperative, restless. Pain: Denies pain. Pt sls1 Declines HIV testing. The patient is triaged at the bedside. See Assessment in Nurses Notes section of ED record. Neurological: Level of Consciousness is awake, alert. Respiratory: Airway is patent Respiratory effort is even, unlabored, Respiratory pattern is regular, symmetrical. Derm: pt has multiple scabs to area. Historical: - Allergies: no known allergies; - Home Meds: 1. none - PMHx: none; - PSHx: none; - Social history: Smoking status: Patient uses tobacco products, current every day smoker. No barriers to communication noted, The patient speaks fluent Danish, Speaks appropriately for age. - Family history: Not pertinent. - : The pt / caregiver states he / she is not on anticoagulants. Home medication list is obtained from the patient. - Exposure Risk Screening:: None identified. Screenin:08 Screening information is obtained from the patient. Fall risk: No risks identified. sls1 Assistance ADL's: requires no assistance with activities of daily living. Abuse/DV Screen: The patient / caregiver reports he/she is: not in a situation that causes fear, pain or injury. Nutritional screening: No deficits noted. Advance Directives: Further advance directive information is declined. home support is adequate. Assessment: 06:08 General: Appears in no apparent distress, see triage assessment. sls1 06:09 General: Appears distressed, pt is pacing the room, standing in corner then sitting on mf4 the ground. Appears to be talking to self . Behavior is agitated, anxious, cooperative, restless. Respiratory: Airway is patent Respiratory effort is even, unlabored. 07:30 General: Behavior is agitated, cooperative, Pt pacing room when this resume writer entered. Pt hs1 speaks calmly and is cooperative. Pt upset about being here and is aware of time line. A Emanuel PSA also in to speak with patient regarding time line. Pt states he refuses breakfast. Pt aware of who to speak with if needs arise. . 08:40 General: Pt sitting in room in corner. Pt continues to be cooperative however flat. . hs1 09:00 General: Appears in no apparent distress, comfortable, Behavior is cooperative, ttb pleasant, quiet. 09:00 General: pt resting on stretcher. Denies wanting breakfast. Left in room at this time ttb in case pt does want to eat. Security monitoring pt. No distresses noted. No requests at this time. . Pain: Denies pain. Neurological: Level of Consciousness is awake, alert, Oriented to person, place, time. Cardiovascular: Chest pain is denied. Respiratory: No deficits noted. Airway is patent Denies cough, shortness of breath. GI: Denies nausea, vomiting, pain. Derm: Skin is normal. 10:00 Reassessment: Patient appears in no apparent distress at this time. General: Appears in ttb no apparent distress, comfortable. Neurological: Level of Consciousness is awake, alert. Respiratory: No deficits noted. Airway is patent. 10:51 General: report given to next RN, Carmella to continue care. Pt resting on stretcher. ttb NAD noted. . Respiratory: Airway is patent Respiratory effort is even, unlabored. 11:25 General: Behavior is cooperative, pt presently sitting in corner --per security pt ms2 sitting there since ed arrival. Respiratory: Airway is patent Respiratory effort is even, unlabored, Respiratory pattern is regular, symmetrical. :. Derm: Skin is pink, warm & dry. 12:11 General: pt now pacing about room-responds appropriately but short cliiped responces. ms2 Neurological: No deficits noted. Respiratory: Respiratory effort is even, unlabored. :. :. Derm: Skin is pink, warm & dry. pt has old healed laceration running from upper mid arm down entire length of arm. 12:50 General: pacing about room. Respiratory: No deficits noted. Derm: Skin is pink, warm & ms2 dry. 13:34 General: Appears in no apparent distress, pt had used the phone ---appears less anxious ms2 after this -present,y lying on stretcher. Respiratory: No deficits noted. Derm: Skin is pink, warm & dry. 14:38 General: Appears in no apparent distress, comfortable, Behavior is cooperative. Pain: ms2 Denies pain. Neurological: Level of Consciousness is awake, alert, obeys commands. Respiratory: No deficits noted. Airway is patent Respiratory effort is even, unlabored, Respiratory pattern is regular, symmetrical. GI: Abdomen is flat, non- distended. Derm: Skin is pink, warm & dry. Musculoskeletal: Range of motion intact in all extremities. Mental Health Eval: 06:17 Referral Information: Evaluation referral is generated by a police agency: [employer] on cl 9.41.. The patient was referred for evaluation because Pt reportedly had knife and made suicidal comments, neighbors called 911.. 11:24 Mental health consult is initiated at 11:00. Status: The patient is not a [facility] room service clerk or dependent. [facility]: The patient is not an established patient of [facility]. 11:26 Subjective: The patients chief complaint is Pt's chief complaint is "I got upset 9 yesterday and disturbed other people." Pt stated that him and his girlfriend of nine years broke up about two moths ago. Pt stated that they are currently living together with their two children. Pt stated that he wouldn't do therapy with ex girlfriend, and blames himself for the break up. Pt stated that his ex girlfriend has a new boyfriend. Pt stated they were talking last night and things got out of control. Pt denies SI/HI but stated "I am going to tell you what you want to hear so I can get out of here". Pt stated they moved back to [place] about 2 years ago to "start over". Pt stated his sleeping is sporadic and drinks alcohol until he passes out. . Delusions are denied. Patient's mood is angry, anxious, depressed, hopeless, Hallucinations are denied. Pt was pacing back and forth during the interview. Pt was crying on and off during interview with this resume writer. Mental Health history: no relevant mental health problems or treatments. Mental Health Admissions: None. Current Outpatient Mental Health Services: None. Current living environment is The patient currently lives ex girlfriend, six year old daughter, and three year old son. . Patient presents to Emergency Department with the following symptoms within the past 2 weeks: aggression, alcohol abuse, anger, decreased appetite, depressed mood, excessive guilt, feelings of helplessness/hopelessness, relational problem, sleep disturbance - erratic. Substance abuse: Patient uses beer, two six packs of 16 oz. cans. daily. Last use was Last night. . Patient uses marijuana weekly Patient uses tobacco Frequency daily. Mental status exam: Patients appearance is appropriate, Patient's behavior is Pt was cooperative with answering questions from this resume writer. Patient was pacing back and forth during the interview making no eye contact. . Speech is mumbled. Affect is Pt was crying during interview with this resume writer. . Mood is angry. depressed. Hallucinations are denied. Appetite is poor. Memory is good. Energy level is normal. Content of thought is depressive. Thought process is intact. Cognitive level is oriented to person, place, time and situation Patient's insight is fair. Judgement is poor. Rapport with interviewer is Pt was cooperative during interview, however patient would not make eye contact and continued to pace. . Suicidal Ideation is denied. Homicidal ideation is denied. Disposition: Medically cleared for disposition by Darya Young MD. 12:26 [facility] Admission Criteria: The patient is experiencing suicidal ideation. The patient kh9 requires continuous observation and/or control to protect self, others or property. Legal Status: Patient's legal status will be Emergency admission: . [place] Safe Act: [place] Safe Act is applicable to this patient. The patient poses a risk to self or other and the Nursing Yarn Mercerizer Operator has been notified. He/She will enter the patient's data. 13:17 DSM-V Differential Diagnosis: Unspecified Depressive Disorder (F32.9). kh9 14:30 Pt states preferred pharmacy is: [email or web address] on [address]. kh9 15:13 Insurance Pre-Certification: approved by: Nona at [facility] approving 4 days from kh9 07/21-07/28. Review will need to be done on 07/24/16. Auth#[id number]. Vital Signs: 06:06 Weight 79.38 kg; Height 5 ft. 11 in. (180.34 cm); Pain 0/10; sls1 06:06 BP 149 / 97; Pulse 114; Resp 18; Temp 98.4(TE); Pulse Ox 95% on R/A; Pain 0/10; mf4 09:02 BP 125 / 80; Pulse 65; Resp 18; Temp 97.6(O); Pulse Ox 98% on R/A; dpm 14:35 BP 158 / 100; Pulse 74; Resp 18; Pulse Ox 97% on R/A; dpm 06:06 Body Mass Index 24.41 (79.38 kg, 180.34 cm) [facility] Vitals: 06:05 Log In time N/A- police car arrival. [facility] ED Course: 05:59 Patient visited by Amy Peña, Reg. hs2 05:59 Patient moved to Waiting hs2 06:03 Patient moved to [place] [id number] 06:05 Triage Initiated sls1 06:08 The patient / caregiver is instructed regarding the plan of care and ED course. Patient sls1 has correct armband on for positive identification. Placed in psych safe attire. Call light in reach. 06:13 Dwight Lamar DO is Attending Physician. mm11 06:14 Patient visited by Dwight Lamar DO. mm11 06:16 Patient visited by David Dinh. mas 06:16 Pt greeted and oriented to ED. Patient advised of names of staff involved in care, mas location of call [place], wait times and NPO status. Accompanied by Law Enforcement, SHAHZAD on , Patient has correct armband on for positive identification. Placed in psych safe attire. Bed in low position. Call light in reach. Side rails up X 1. Security observing. Property removed, inventory done, secured in belongings bag- Placed in locker 3. Door closed. Noise minimized. Moved to private room. Verbal reassurance given. Warm blanket given. Pillow given. Psych Safety Check: Location: Psych Room. Visual Assessment: cooperative \\T\\ this time. 06:29 Patient visited by Dwight Lamar DO. mm11 06:30 Patient visited by David Dinh. mas 06:39 Acetaminophen Level Sent. mf4 06:39 Basic Metabolic Profile Sent. mf4 06:39 Complete Blood Count Sent. mf4 06:39 Drug Eval Toxicology ED Only Sent. mf4 06:39 Ethyl Alcohol (ethanol) Sent. mf4 06:39 Liver Profile Sent. mf4 06:39 Salicylate Level Sent. mf4 06:39 Thyroid Stimulating Hormone Sent. mf4 06:45 Patient visited by David Dinh. mas 07:00 Patient visited by Ankur Ziegler. dpm 07:09 Attending Physician role handed off by Dwight Lamar DO sd1 07:09 Darya Young MD is Attending Physician. sd1 07:15 Patient visited by Ankur Ziegler. dpm 07:34 Patient visited by Veena Shaver RN. hs1 07:36 Patient visited by Ankur Ziegler. dpm 07:46 Patient visited by Ankur Ziegler. dpm 08:01 Patient visited by Ankur Ziegler. dpm 08:11 [facility] Payment Agreement was scanned into [employer] and attached to record. mpb 08:16 Patient visited by Ankur Ziegler. dpm 08:29 Patient visited by Ankur Ziegler. dpm 08:44 Patient visited by Ankur Ziegler. dpm 08:59 Patient visited by Ankur Ziegler. dpm 09:00 Security observing. ttb 09:16 Patient visited by Ankur Ziegler. dpm 09:32 Patient visited by Ankur Ziegler. dpm 09:51 Patient visited by Ankur Ziegler. dpm 09:55 Patient visited by Elisa Turner RN. ttb 10:00 Security observing. ttb 10:00 No IV's were initiated during this patient's visit. Labs drawn. (by ED staff). Urine ttb collected. 10:06 Patient visited by Ankur Ziegler. dpm 10:17 Patient visited by Ankur Ziegler. dpm 10:32 Patient visited by Ankur Ziegler. dpm 10:47 Patient visited by Ankur Ziegler. dpm 11:03 Patient visited by Ankur Ziegler. dpm 11:15 Patient visited by Ankur Ziegler. dpm 11:29 Patient visited by Ankur Ziegler. dpm 11:42 Patient visited by Ke Baltazar RN. ms2 11:44 Patient visited by Ankur Ziegler. dpm 11:44 Security observing. ms2 11:59 Patient visited by Ankur Ziegler. dpm 12:13 Security observing. ms2 12:42 Patient visited by Ankur Ziegler. dpm 12:50 Security observing. Diet: Patient given regular meal. ms2 13:01 Patient visited by Ankur Ziegler. dpm 13:13 [facility] Legal paperwork was scanned into [employer] and attached to record. jl 13:32 Sukhdev Xiao is Hospitalizing Provider. sd1 13:35 Security observing. ms2 13:46 Patient visited by Ankur Ziegler. dpm 14:06 Patient visited by Ankur Ziegler. dpm 14:21 Patient visited by Ankur Ziegler. dpm 14:36 Patient visited by Ankur Ziegler. dpm 14:38 The patient / caregiver is instructed regarding the plan of care and ED course. ms2 Security observing. 14:39 No procedures done that require assistance. ms2 19:57 T-Sheet-- Draft Copy was scanned into [employer] and attached to record. gb Attachments: 13:13 [facility] Legal paperwork jl Order Results: Lab Order: Acetaminophen Level; SPEC'M 07/21/16 06:36 Test: ACETAMINOPHEN LEVEL; Value: < 2.0; Range: 10.0-30.0; Abnormal: Below low normal; Units: UG/ML; Status: F Lab Order: Basic Metabolic Profile; [facility] 07/21/16 06:36 Test: GLUCOSE, FASTING; Value: 98; Range: 70-105; Units: MG/DL; Status: F Test: BLOOD UREA NITROGEN; Value: 11; Range: 7-18; Units: MG/DL; Status: F Test: CREATININE FOR GFR; Value: 1.14; Range: 0.70-1.30; Units: MG/DL; Status: F Test: GLOMERULAR FILTRATION RATE; Value: > 60.0; Range: >60; Status: F Test: SODIUM LEVEL; Value: 145; Range: 136-145; Units: MEQ/L; Status: F Test: POTASSIUM SERUM; Value: 4.1; Range: 3.5-5.1; Units: MEQ/L; Status: F Test: CHLORIDE LEVEL; Value: 110; Range: 98-107; Abnormal: Above high normal; Units: MEQ/L; Status: F Test: CARBON DIOXIDE LEVEL; Value: 25; Range: 21-32; Units: MEQ/L; Status: F Test: ANION GAP; Value: 10; Range: 8-16; Units: MEQ/L; Status: F Test: CALCIUM LEVEL; Value: 8.3; Range: 8.5-10.1; Abnormal: Below low normal; Units: MG/DL; Status: F Test Note: ; Units are mL/min/1.73 m2 Chronic Kidney Disease Staging per NKF: Stage I & II GFR >=60 Normal to Mildly Decreased Stage III GFR 30-59 Moderately Decreased Stage IV GFR 15-29 Severely Decreased Stage V GFR <15 Very Little GFR Left ESRD GFR <15 on WATER POLLUTION SPECIALIST Lab Order: Complete Blood Count; [facility] 07/21/16 06:36 Test: WHITE BLOOD COUNT; Value: 9.8; Range: 4.0-10.0; Units: K/mm3; Status: F Test: RED BLOOD COUNT; Value: 5.46; Range: 4.30-6.10; Units: M/mm3; Status: F Test: HEMOGLOBIN; Value: 18.0; Range: 14.0-18.0; Units: g/dl; Status: F Test: HEMATOCRIT; Value: 51.5; Range: 42.0-52.0; Units: %; Status: F Test: MEAN CORPUSCULAR VOLUME; Value: 94.4; Range: 80.0-96.0; Units: fl; Status: F Test: MEAN CORPUSCULAR HEMOGLOBIN; Value: 32.9; Range: 27.0-33.0; Units: pg; Status: F Test: MEAN CORPUSCULAR HGB CONC; Value: 34.9; Range: 32.0-36.5; Units: g/dl; Status: F Test: RED CELL DISTRIBUTION WIDTH; Value: 12.4; Range: 11.5-14.5; Units: %; Status: F Test: PLATELET COUNT, AUTOMATED; Value: 226; Range: 150-450; Units: k/mm3; Status: F Lab Order: Drug Eval Toxicology ED Only; SPEC'M 07/21/16 06:36 Test: AMPHETAMINES LEVEL URINE; Value: NEGATIVE; Range: NEGATIVE; Status: F Test: M-AMPHETAMINES LEVEL URINE; Value: NEGATIVE; Range: NEGATIVE; Status: F Test: BARBITURATES URINE; Value: NEGATIVE; Range: NEGATIVE; Status: F Test: BENZODIAZEPINES URINE; Value: NEGATIVE; Range: NEGATIVE; Status: F Test: CANNABINOIDS URINE; Value: POSITIVE; Range: NEGATIVE; Abnormal: Above high normal; Status: F Test: COCAINE METABOLITE URINE; Value: NEGATIVE; Range: NEGATIVE; Status: F Test: OPIATES URINE; Value: NEGATIVE; Range: NEGATIVE; Status: F Test: PHENCYCLIDINE URINE; Value: NEGATIVE; Range: NEGATIVE; Status: F Test: TRICYCLIC ANTIDEPRESS URINE; Value: NEGATIVE; Range: NEGATIVE; Status: F Test Note: ; FALSE POSITIVE RESULTS CAN BE CAUSED BY THE USE OF PANTOPRAZOLE (PROTONIX). Lab Order: Ethyl Alcohol (ethanol); SPEC'M 07/21/16 06:36 Test: ETHYL ALCOHOL (ETHANOL); Value: 0.191; Range: 0.000-0.010; Abnormal: Above high normal; Units: %; Status: F Lab Order: Liver Profile; SPEC'M 07/21/16 06:36 Test: AST/SGOT; Value: 22; Range: 15-37; Units: U/L; Status: F Test: ALT/SGPT; Value: 32; Range: 12-78; Units: U/L; Status: F Test: ALKALINE PHOSPHATASE; Value: 91; Range: 45-117; Units: U/L; Status: F Test: BILIRUBIN,TOTAL; Value: 0.2; Range: 0.2-1.0; Units: MG/DL; Status: F Test: BILIRUBIN,DIRECT; Value: 0.1; Range: 0.0-0.2; Units: MG/DL; Status: F Test: TOTAL PROTEIN; Value: 7.0; Range: 6.4-8.2; Units: GM/DL; Status: F Test: ALBUMIN; Value: 4.0; Range: 3.2-5.2; Units: GM/DL; Status: F Test: ALBUMIN/GLOBULIN RATIO; Value: 1.33; Range: 1.00-1.93; Status: F Lab Order: Salicylate Level; SPEC'M 07/21/16 06:36 Test: SALICYLATE LEVEL; Value: 5.4; Range: 5.0-30.0; Units: MG/DL; Status: F Lab Order: Thyroid Stimulating Hormone; SPEC'M 07/21/16 06:36 Test: THYROID STIMULATING HORMONE; Value: 1.390; Range: 0.358-3.740; Units: uIU/ML; Status: F Outcome: 13:32 Decision to Hospitalize by Provider. sd1 14:39 Discharge Assessment: patient administered narcotics - no. The following High Risk ms2 Discharge criteria are identified: None. Admitted to Psych accompanied by tech, via wheelchair, with chart. Condition: stable. No special radiology studies were completed. 14:43 Patient left the ED. ms2 Signatures: Darya Young MD MD sd1 Ke Baltazar,RN RN ms2 Sesar Ibrahim, PSA PSA Manjit Jo, PSA PSA cl [place], Toni Reg Dwight Woodall, DO mm11 Veena Shaver RN RN hs1 David Dinh Shannon, RN RN sls1 Ke Wright,GIUSEPPE SMITHN mf4 Ankur Ziegler dpm, Teresa RN RN ttb noemi valencia kh9 Norbert Tinsley, Reg Reg mpb Amy Peña, Reg Reg hs2 Corrections: (The following items were deleted from the chart) 06:07 06:03 Presenting complaint: police report, called to residence by neighbor, report pt sls1 was in domestic dispute with SO, state he went into hallway with supervisor boat outfitting knife and made threats to harm himself. Pt and SO recently . Pt denies SI or HI, denies events happened sls1 06:09 06:06 BP 149 / 97; Resp 18bpm; Pulse Ox 95% RA; Temp 98.4F Temporal; Pain 0/10; mf4 mf4 Chart Complete MTDD
[2016-07-23 18:00] VITALS: BP 134/93
[2016-07-23] MEDS: traZODone 50 MG TAB PO PRN (23:40)
[2016-07-24 06:34] VITALS: BP 151/81
--- NOTE | 2016-07-24 07:09 | IPN ---
DATE OF VISIT: 07/22/2016 VITAL SIGNS: Temperature 96.6, pulse 66, respirations 18, blood pressure 164/89. MENTAL STATUS EXAMINATION: The patient reports that he is experiencing some withdrawal from alcohol which may be explaining his elevated blood pressure (BP) for the moment but none of this has reached the point where he has needed, as needed Ativan, according to the [facility] protocol. There are no hallucinations or delusions. The patient reports he is quite depressed because he misses his family. He is vague about whether there is suicidal ideation . The patient is fully oriented, insight and judgment are considered to be impaired. DIAGNOSES: 1. Unspecified depression. 2. Alcohol withdrawal, minimal. PLAN: Because the patient is still experiencing symptoms from withdrawal we will hold off on beginning antidepressant treatment so that we can have a clear idea of what factors are causing what symptoms. We will continue to monitor his vital signs following the [facility] protocol and hope to begin Venlafaxine tomorrow.
--- NOTE | 2016-07-24 09:01 | HPE ---
DATE OF ADMISSION: 07/21/2016 HISTORY OF PRESENT ILLNESS (HPI): Please refer to psychiatric history and evaluation for further details on this admission. This examination and history is intended for medical issues, which may need treatment, followup or consultation on this 31-year-old male. PRIMARY CARE PROVIDER: He has none currently. ALLERGIES: NO KNOWN ALLERGIES. SOCIAL HISTORY: He is . He has two children, ages 3 and 6. Ethyl alcohol (EtOH): He drinks approximately 12, 16 ounce beers a night. Smokes 1-1/2 to 2 packs of cigarettes per day. Recreational drug use: Marijuana. PAST MEDICAL HISTORY: Negative. PAST SURGICAL HISTORY: Negative. HOME MEDICATIONS: None. FAMILY HISTORY: Noncontributory. LABORATORY STUDIES: CBC was normal. Sodium 145, potassium 4.1, chloride 110, CO2 25, calcium 8.3. Urine was positive for cannabinoids. EtOH was 0.191. 10 systems review was done and was negative except for self-inflicted alvarado in various stages of healing and a self-inflicted healing laceration in the left forearm. OBJECTIVE: 31-year-old, cooperative male, who looks much older than his stated years, in no acute distress. Height 71 inches. Weight 88.6 kg. Body mass index (BMI) 27.2. Blood pressure 150/90. Pulse 71. Respirations 16. Temperature 97.5. Patient is alert and oriented times three. Pupils equal and react to light. Extraocular movements (EOMs) intact. Cornea and sclera is clear. Conjunctiva is normal. No facial asymmetry. Pharynx, tongue and gum is pink and moist. Tongue is midline. Neck is supple, without lymphadenopathy. No thyromegaly. No goiter. Chest clear to auscultation, without wheeze or retraction. Heart is regular. Abdomen benign. Bowel sounds positive. Genitourinary ()/rectal not done. Extremities: No cyanosis, clubbing, or edema. Peripheral pulses equal and palpable bilaterally. Skin is warm and dry. Right upper arm has a large healing burn opened. No drainage. Left arm from antecubital to wrist has a healing laceration, slightly reddened, scabbed with numerous healing self-inflicted alvarado in various stages of healing, some scabbed. No redness or drainage. Hand supply analyst equal. IMPRESSION/PLAN: Psychiatric plan per psychiatry. Monitor for alcohol withdrawal. Bacitracin to open burn right upper arm, left antecubital self-inflicted laceration and scabbed alvarado on left arm. Monitor for infection. No other acute medical issues. Edited: 07/24/2016 [id number] zee
[2016-07-24] MEDS: MULTIVITAMINS/MINERALS THERAP 1 TAB PO SCH (09:10)
[2016-07-24] MEDS: FOLIC ACID 1 MG TAB PO SCH (09:10)
[2016-07-24] MEDS: THIAMINE 100 MG TAB PO SCH ×2 (09:10→20:18)
[2016-07-24] MEDS: BACITRACIN OINT 30GM TOP SCH ×2 (09:11→20:19)
[2016-07-24] MEDS: NICOTINE POLACRILEX 2 MG GUM PO PRN ×3 (09:11→20:19)
[2016-07-24 12:15] VITALS: BP 138/71
--- NOTE | 2016-07-24 12:58 | IPN ---
DATE: 07/24/2016 VITAL SIGNS: Temperature 96.4, pulse 69, respirations 20, blood pressure 151/81. MENTAL STATUS EXAMINATION: The patient was seen today. He remains quite sad with frequent tearfulness. He is trying to explain that at times he hears voices such as his child crying for him in the hallway and at other times he is having a lot of self deprecating thoughts that he realizes are going on inside his head. The patient is fully oriented. Judgment and insight are considered to be quite impaired. He remains pessimistic, very much wants to go home as soon as possible, and is afraid that he will be stuck in the hospital forever and that he will never get well. DIAGNOSES: Unspecified depression. Polysubstance abuse. PLAN: The patient appears to have completed his withdrawal from alcohol today so we will now begin antidepressant medication to begin to help his mood. We will start duloxetine 30 mg twice a day and monitor for side effects and improvement. We will carefully monitor his hallucinations. If it turns out these are truly external voices we will add an antipsychotic medication because then we would be dealing with a psychotic depression.
[2016-07-24] MEDS: DULoxetine 30 MG CAP (CYMBALTA) PO SCH ×2 (13:05→20:18)
[2016-07-24 18:02] VITALS: BP 136/88
[2016-07-24] MEDS: traZODone 50 MG TAB PO PRN (23:03)
[2016-07-25] MEDS: NICOTINE POLACRILEX 2 MG GUM PO PRN ×2 (06:25→20:06)
[2016-07-25 06:28] VITALS: BP 152/92
[2016-07-25] MEDS: MULTIVITAMINS/MINERALS THERAP 1 TAB PO SCH (08:56)
[2016-07-25] MEDS: BACITRACIN OINT 30GM TOP SCH ×2 (08:56→20:04)
[2016-07-25] MEDS: THIAMINE 100 MG TAB PO SCH ×2 (08:56→20:05)
[2016-07-25] MEDS: FOLIC ACID 1 MG TAB PO SCH (08:56)
[2016-07-25] MEDS: DULoxetine 30 MG CAP (CYMBALTA) PO SCH ×2 (08:56→20:05)
[2016-07-25 12:00] VITALS: BP 129/72
--- NOTE | 2016-07-25 16:00 | IPN ---
DATE: 07/25/2016 VITAL SIGNS: Temperature 96.0 tympanic, pulse 62, respirations 18, blood pressure 129/72. MENTAL STATUS EXAMINATION: Today the patient remains morbidly depressed and tearful. He cries frequently. He notes that he is able to tolerate the duloxetine so far without gastrointestinal (GI) upset but, not unexpectedly, it has not done anything to help his mood yet because it is too early and the dose is too low. The patient is still upset by hearing voices outside his head of his children crying or internal voices commanding him to hurt himself. The patient is fully oriented. Judgment and insight are considered to be impaired. DIAGNOSTIC IMPRESSION: Major depression with psychotic features. PLAN: Continue duloxetine at the entry dose of 30 mg twice a day with expectation of increasing that as soon as his tolerance continues. But now we will add Abilify 2 mg daily to deal with hallucinations and as a major general for severe depression. We will monitor for akathisia. We will titrate this dose as well until we reach a point where there are no more hallucinations.
[2016-07-25] MEDS: ARIPiprazole 2 MG TAB PO SCH (16:01)
[2016-07-25 18:00] VITALS: BP 129/72
[2016-07-25] MEDS: ACETAMINOPHEN TAB 650MG DOSE (2X325MG) PO PRN (21:22)
[2016-07-26 06:29] VITALS: BP 157/98
[2016-07-26] MEDS: MULTIVITAMINS/MINERALS THERAP 1 TAB PO SCH (08:59)
[2016-07-26] MEDS: DULoxetine 30 MG CAP (CYMBALTA) PO SCH ×3 (08:59→21:28)
[2016-07-26] MEDS: BACITRACIN OINT 30GM TOP SCH ×2 (08:59→21:28)
[2016-07-26] MEDS: THIAMINE 100 MG TAB PO SCH ×2 (08:59→21:28)
[2016-07-26] MEDS: FOLIC ACID 1 MG TAB PO SCH (08:59)
[2016-07-26] MEDS: ARIPiprazole 2 MG TAB PO SCH (08:59)
--- NOTE | 2016-07-26 10:15 | REP ---
RIGHT HAND TWO VIEWS: 07/26/2016. Comparison: 06/06/2016 wrist series. Clinical history: That portion of distal radius and ulna seen were unremarkable. Carpal bones and their joint spaces are intact. Metacarpals and phalanges show no visible or displaced fracture. There is some soft tissue swelling dorsal aspect of the hand. MCP and IP joints intact. Impression: 1. There is no visible or displaced fracture. There is some soft tissue swelling dorsal aspect of the hand. Signed by Lino Cox MD 07/26/2016 04:25 P
[2016-07-26] MEDS: NICOTINE POLACRILEX 2 MG GUM PO PRN (11:46)
--- NOTE | 2016-07-26 17:02 | IPN ---
DATE: 07/26/2016 VITAL SIGNS: Temperature 97.9 tympanic, pulse 58, respirations 16, blood pressure 157/98. MENTAL STATUS EXAMINATION: The patient reports that he is still depressed and distraught. He is still hallucinating voices urging suicide, and he still feels hopeless. He is fully oriented. Judgment and insight are considered impaired by his illness. To my examination, he appears somewhat better. Although the addition of Abilify has not eradicated his voices yet, today he does seem to be somewhat more composed and somewhat less frantic. He is not bursting into tears during our interview. He notes that he is still quite depressed. DIAGNOSTIC IMPRESSION: Remains unspecified depression. PLAN: I will now increase duloxetine to 30 mg three times a day to get into a therapeutic range while trying to minimize gastrointestinal (GI) upsets for Mr. Simmons. We will also be looking to increase Abilify later in the week to try to tamp out the voices that are plaguing him.
[2016-07-26 18:08] VITALS: BP 130/81
[2016-07-26] MEDS: ACETAMINOPHEN TAB 650MG DOSE (2X325MG) PO PRN (19:02)
[2016-07-26 21:00] VITALS: BP 181/91
[2016-07-26] MEDS: traZODone 50 MG TAB PO PRN (21:28)
[2016-07-27 06:36] VITALS: BP 146/86
[2016-07-27] MEDS: ARIPiprazole 2 MG TAB PO SCH ×2 (08:18→20:54)
[2016-07-27] MEDS: FOLIC ACID 1 MG TAB PO SCH (08:18)
[2016-07-27] MEDS: MULTIVITAMINS/MINERALS THERAP 1 TAB PO SCH (08:18)
[2016-07-27] MEDS: BACITRACIN OINT 30GM TOP SCH ×2 (08:18→20:55)
[2016-07-27] MEDS: THIAMINE 100 MG TAB PO SCH ×2 (08:19→20:54)
[2016-07-27] MEDS: DULoxetine 30 MG CAP (CYMBALTA) PO SCH ×3 (08:19→20:55)
--- NOTE | 2016-07-27 14:28 | IPN ---
DATE: 07/27/2016 VITAL SIGNS: Temperature 97.4 tympanic, pulse 91, respirations 18, blood pressure 146/86. MENTAL STATUS EXAMINATION: The patient today notes that he is somewhat less anxious. He points to abrasions on his forearm that he created when he first came in and says "I know that I am less anxious now because I am not tearing at my skin the way I did in the beginning". However, the patient remains distraught and in despair. He broke up with his girlfriend who is the mother of his children, but they still cohabited and in the past day or so he has found out that the new boyfriend that she has replaced him with has been staying at the house where the kids are. He had hoped this new man would be introduced in a group meeting during which he would be present, but his girlfriend went ahead and told the children without him. He is in despair and blames himself for his actions leading to the breakup of the relationship. "I have just been a stupid idiot again". He remarks that his voices are still plaguing him and he still has suicidal ideation. The patient is fully oriented. Judgment and insight are considered to be poor. He does not feel he needs some kind of rehabilitation program for his substance abuse when he leaves. DIAGNOSTIC IMPRESSION: Major depression with psychotic features. Polysubstance abuse. PLAN: Encourage the patient to continue in milieu and group therapies on the unit. I will now increase his Abilify to 4 mg at bedtime to try to tamp down voices. The patient's duloxetine was increased yesterday to 30 three times a day and he seems to be tolerating this and it is probable that his reduction in anxiety is related to the increase in that medicine. We will ladder back and forth between the two medicines gradually increasing each one to create symptom control.
[2016-07-27 18:00] VITALS: BP 137/92
[2016-07-27] MEDS: NICOTINE POLACRILEX 2 MG GUM PO PRN (19:15)
[2016-07-27] MEDS: ACETAMINOPHEN TAB 650MG DOSE (2X325MG) PO PRN (20:56)
[2016-07-27] MEDS: traZODone 50 MG TAB PO PRN (22:53)
[2016-07-28 06:46] VITALS: BP 152/89
[2016-07-28] MEDS: BACITRACIN OINT 30GM TOP SCH ×2 (09:08→21:14)
[2016-07-28] MEDS: DULoxetine 30 MG CAP (CYMBALTA) PO SCH ×3 (09:09→21:12)
[2016-07-28] MEDS: THIAMINE 100 MG TAB PO SCH ×2 (09:09→21:13)
[2016-07-28] MEDS: MULTIVITAMINS/MINERALS THERAP 1 TAB PO SCH (09:14)
[2016-07-28] MEDS: FOLIC ACID 1 MG TAB PO SCH (09:14)
[2016-07-28] MEDS: NICOTINE POLACRILEX 2 MG GUM PO PRN (11:22)
[2016-07-28 11:42] VITALS: BP 136/88
[2016-07-28] MEDS: ACETAMINOPHEN TAB 650MG DOSE (2X325MG) PO PRN (17:47)
[2016-07-28 18:00] VITALS: BP 138/81
[2016-07-28] MEDS: ARIPiprazole 2 MG TAB PO SCH (21:13)
[2016-07-28] MEDS: traZODone 50 MG TAB PO PRN (23:47)
[2016-07-29 06:19] VITALS: BP 149/96
[2016-07-29] MEDS: THIAMINE 100 MG TAB PO SCH ×2 (08:55→21:33)
[2016-07-29] MEDS: MULTIVITAMINS/MINERALS THERAP 1 TAB PO SCH (08:55)
[2016-07-29] MEDS: FOLIC ACID 1 MG TAB PO SCH (08:55)
[2016-07-29] MEDS: DULoxetine 30 MG CAP (CYMBALTA) PO SCH ×3 (08:55→21:33)
[2016-07-29] MEDS: BACITRACIN OINT 30GM TOP SCH ×2 (08:56→21:00)
[2016-07-29] MEDS: NICOTINE POLACRILEX 2 MG GUM PO PRN ×4 (10:07→22:44)
[2016-07-29 12:00] VITALS: BP 134/81
[2016-07-29 18:00] VITALS: BP 139/90
[2016-07-29] MEDS: ARIPiprazole 2 MG TAB PO SCH (21:33)
[2016-07-29] MEDS: traZODone 50 MG TAB PO PRN (23:48)
[2016-07-30 06:38] VITALS: BP 146/81
[2016-07-30] MEDS: BACITRACIN OINT 30GM TOP SCH ×2 (09:15→20:06)
[2016-07-30] MEDS: THIAMINE 100 MG TAB PO SCH ×2 (09:15→20:07)
[2016-07-30] MEDS: MULTIVITAMINS/MINERALS THERAP 1 TAB PO SCH (09:15)
[2016-07-30] MEDS: DULoxetine 30 MG CAP (CYMBALTA) PO SCH ×3 (09:15→20:07)
[2016-07-30] MEDS: FOLIC ACID 1 MG TAB PO SCH (09:15)
[2016-07-30] MEDS: NICOTINE POLACRILEX 2 MG GUM PO PRN ×3 (10:06→21:14)
[2016-07-30 12:00] VITALS: BP 139/74
[2016-07-30] MEDS: ACETAMINOPHEN TAB 650MG DOSE (2X325MG) PO PRN (16:26)
[2016-07-30 18:00] VITALS: BP 140/74
[2016-07-30] MEDS: ARIPiprazole 2 MG TAB PO SCH (20:07)
[2016-07-30] MEDS: hydrOXYzine 25 MG TAB PO PRN (20:07)
[2016-07-30] MEDS: traZODone 50 MG TAB PO PRN (22:46)
[2016-07-31 06:23] VITALS: BP 145/88
[2016-07-31] MEDS: BACITRACIN OINT 30GM TOP SCH ×2 (08:11→20:38)
[2016-07-31] MEDS: FOLIC ACID 1 MG TAB PO SCH (08:13)
[2016-07-31] MEDS: MULTIVITAMINS/MINERALS THERAP 1 TAB PO SCH (08:14)
[2016-07-31] MEDS: DULoxetine 30 MG CAP (CYMBALTA) PO SCH ×3 (08:14→20:37)
[2016-07-31] MEDS: THIAMINE 100 MG TAB PO SCH ×2 (08:14→20:37)
[2016-07-31] MEDS: NICOTINE POLACRILEX 2 MG GUM PO PRN ×3 (09:42→21:23)
[2016-07-31] MEDS: hydrOXYzine 25 MG TAB PO PRN (09:42)
[2016-07-31] MEDS: BENZTROPINE 2 MG TAB PO SCH ×2 (14:59→20:37)
[2016-07-31 18:00] VITALS: BP 148/90
[2016-07-31] MEDS: ACETAMINOPHEN TAB 650MG DOSE (2X325MG) PO PRN (20:38)
[2016-07-31] MEDS: traZODone 50 MG TAB PO PRN (22:59)
[2016-08-01 06:00] VITALS: BP 150/90
[2016-08-01] MEDS: BACITRACIN OINT 30GM TOP SCH ×2 (08:21→20:09)
[2016-08-01] MEDS: THIAMINE 100 MG TAB PO SCH ×2 (08:23→20:09)
[2016-08-01] MEDS: MULTIVITAMINS/MINERALS THERAP 1 TAB PO SCH (08:23)
[2016-08-01] MEDS: DULoxetine 30 MG CAP (CYMBALTA) PO SCH ×3 (08:23→20:09)
[2016-08-01] MEDS: FOLIC ACID 1 MG TAB PO SCH (08:23)
[2016-08-01] MEDS: BENZTROPINE 2 MG TAB PO SCH (08:23)
[2016-08-01] MEDS: NICOTINE POLACRILEX 2 MG GUM PO PRN ×3 (08:25→21:23)
--- NOTE | 2016-08-01 09:35 | IPN ---
DATE: 07/31/2016 VITAL SIGNS: Temperature 96.5, tympanic. Pulse 69. Respiratory rate 16. Blood pressure 145/88. MENTAL STATUS EXAMINATION: The patient is pacing quite a bit today, and reports feeling anxious. His nightmares continue but he denies active suicidal ideation. The voices continue but are somewhat muted. The patient is fully oriented. Judgment and insight are considered to be impaired. DIAGNOSTIC IMPRESSION: Remains major depression with psychotic features, polysubstance abuse. PLAN: The patient reports that he is willing to go to a 30-day substance abuse rehabilitation program, and I am encouraging him to do so as this may be a precondition for him to be able to get more involvement with his children once again. This may be something that Child Protective Services (CPS) is really looking for. I have the impression that his pacing may be akathisia brought on by the Abilify. So will substitute Cogentin 2 mg twice a day for the hydroxyzine that is listed for his agitation. This should give us an answer within half an hour. But I will also increase Abilify from 4 to 5 mg at night to see whether nightmares worsen or get better, and see whether voices become more muted.
[2016-08-01 18:17] VITALS: BP 151/89
[2016-08-01] MEDS: BENZTROPINE 1 MG TAB PO SCH (20:09)
[2016-08-01] MEDS ORDERED: BENZTROPINE 2 MG TAB PO SCH (21:00)
[2016-08-02] MEDS: traZODone 50 MG TAB PO PRN ×2 (00:33→23:38)
[2016-08-02 06:19] VITALS: BP 144/92
[2016-08-02] MEDS: NICOTINE POLACRILEX 2 MG GUM PO PRN ×6 (07:12→23:37)
[2016-08-02] MEDS: BACITRACIN OINT 30GM TOP SCH ×2 (08:14→20:01)
[2016-08-02] MEDS: FOLIC ACID 1 MG TAB PO SCH (08:16)
[2016-08-02] MEDS: MULTIVITAMINS/MINERALS THERAP 1 TAB PO SCH (08:16)
[2016-08-02] MEDS: THIAMINE 100 MG TAB PO SCH ×2 (08:16→20:03)
[2016-08-02] MEDS: DULoxetine 30 MG CAP (CYMBALTA) PO SCH ×3 (08:16→20:03)
[2016-08-02] MEDS: ACETAMINOPHEN TAB 650MG DOSE (2X325MG) PO PRN (08:16)
[2016-08-02] MEDS: BENZTROPINE 1 MG TAB PO SCH ×2 (08:16→20:03)
[2016-08-02 18:00] VITALS: BP 147/85
--- NOTE | 2016-08-02 18:07 | IPN ---
DATE OF SERVICE: 08/01/2016 VITAL SIGNS: Temperature 96.4 tympanic, pulse 90, respiratory rate 18, blood pressure 150/90. MENTAL STATUS EXAMINATION: The patient seems more supple and relaxed today. He is still experiencing voices, but notices that they are muted, so that creates a sense of hope. His restlessness is markedly decreased with the addition of Cogentin, but he is experiencing dry mouth. The patient is oriented times three. He says his depression is lessening and denies suicidal ideation. Judgment and insight are considered to be improving on a daily basis. DIAGNOSES: Remains: 1. Major depression with psychotic features. 2. Polysubstance abuse. It is important to note that the patient's agitation was akathisia and that it was relieved by Cogentin; however, now he is struggling with marked anhidrosis. So, we will lower Cogentin from 2 mg twice a day to 1 mg twice a day and monitor for relapse of agitation.
[2016-08-02] MEDS ORDERED: QUEtiapine 300 MG XR TABLET(SEROQUEL XR) PO SCH (21:00)
[2016-08-03 06:36] VITALS: BP_SYST 148; BP_SYST 153; BP_DIAS 102; BP_DIAS 92
[2016-08-03] MEDS: MULTIVITAMINS/MINERALS THERAP 1 TAB PO SCH (08:45)
[2016-08-03] MEDS: hydrOXYzine 25 MG TAB PO PRN ×3 (08:45→21:44)
[2016-08-03] MEDS: THIAMINE 100 MG TAB PO SCH ×2 (08:45→20:36)
[2016-08-03] MEDS: FOLIC ACID 1 MG TAB PO SCH (08:45)
[2016-08-03] MEDS: BENZTROPINE 1 MG TAB PO SCH (08:45)
[2016-08-03] MEDS: DULoxetine 30 MG CAP (CYMBALTA) PO SCH ×3 (08:45→20:36)
[2016-08-03] MEDS: BACITRACIN OINT 30GM TOP SCH ×2 (08:46→20:35)
[2016-08-03] MEDS: NICOTINE POLACRILEX 2 MG GUM PO PRN ×2 (09:14→21:45)
--- NOTE | 2016-08-03 09:32 | IPN ---
DATE: 08/02/2016 VITAL SIGNS: Temperature 95.9 tympanic, pulse 74, respiratory rate 18, blood pressure 144/92. MENTAL STATUS EXAMINATION: The patient today remains restless, he is constantly pacing the hallway and is experiencing anxiety. Some of this still may be akathisia left over from Abilify. He reports that he still has voices telling him to hurt himself. The patient is fully oriented Judgment and insight are considered to be impaired by characterologic issues and his depression. DIAGNOSTIC IMPRESSION: Remains major depression with psychotic features. Polysubstance abuse. PLAN: We are in an awkward situation in terms of his terms of his antipsychotic medication. Abilify helps the voices, but creates restlessness. The Cogentin we are using to treat akathisia creates dry mouth. The patient says he would rather put up with dry mouth than restlessness, but it is now my opinion we should try a different protocol all together and lateral the patient from Abilify to Seroquel a different antipsychotic which will promote sleep at night and also attend to voices. Accordingly we will stop Abilify, keep Cogentin for the moment and begin Seroquel IR at 300 mg at bedtime.
[2016-08-03] MEDS: ACETAMINOPHEN TAB 650MG DOSE (2X325MG) PO PRN (10:28)
--- NOTE | 2016-08-03 15:40 | IPNPDOC ---
Assessment/Plan Date Seen The patient was seen on 08/03/16. Problems Problems: (1) Elevated blood pressure Status: Acute Problem Text: * Pt is reluctant to be started on antihypertensive. * Low Na diet recommended/ Pt agreeable. * Monitor BP, Goal <140/90 * explained to Pt that if persists with Pt following diet that he should consider BP med, Pt verbalizes understanding. Plan / VTE VTE Prophylaxis Ordered?: No (ambulatory) Subjective Review of Systems CC/HPI The patient is a 31-year-old male admitted with a reason for visit of Unspecified Depression And Suicide Ideation. Events since last encounter pt states he has no issues with BP typically. Has been eating foods high in Na on unit, 4 pieces of Grigsby with BF daily. High sodium foods. Constitutional: Denies: Chills, Fever, Malaise, Night Sweats, Weakness ENT: Denies: Dysphagia, Ear Pain, Head Aches Pulmonary: Denies: Cough, Dyspnea Cardiovascular: Denies: Chest Pain, Lt Headedness, Orthopnea, Palpitations, Paroxysmal Noc. Dyspnea Gastrointestinal: Denies: Abdominal Pain, Diarrhea, Nausea, Vomiting Genitourinary: Denies: Dysuria, Frequency, Incontinence, Retention Objective Physical Examination General Exam: Positive: Alert Eye Exam: Positive: PERRLA Chest Exam: Positive: Clear to auscultation, Normal air movement Heart Exam: Positive: Normal S1, Normal S2, Rate Normal, Regular Rhythm, Negative: Murmurs, Rubs Abdomen Exam: Positive: Normal bowel sounds, Soft, Negative: Hepatospenomegaly, Tenderness Skin Exam: Positive: Nl turgor and temperature Neuro Exam: Positive: Normal Gait Vital Signs/I&O Vital Signs Date Time Temp Pulse Resp B/P Pulse Ox O2 Delivery O2 Flow Rate FiO2 08/03/16 06:36 95.0 99 18 148/92 07/28/16 18:00 Room Air Esthela Beaulieu Aug 03, 2016 15:40
[2016-08-03 18:00] VITALS: BP 102/16
[2016-08-03] MEDS ORDERED: QUEtiapine FUMARATE **XR** 200MG TABLET PO SCH (21:00)
[2016-08-03] MEDS: traZODone 50 MG TAB PO PRN (23:01)
[2016-08-04 06:25] VITALS: BP 127/89
[2016-08-04] MEDS: BACITRACIN OINT 30GM TOP SCH ×2 (07:58→20:12)
[2016-08-04] MEDS: MULTIVITAMINS/MINERALS THERAP 1 TAB PO SCH (08:01)
[2016-08-04] MEDS: hydrOXYzine 25 MG TAB PO PRN ×4 (08:01→21:13)
[2016-08-04] MEDS: FOLIC ACID 1 MG TAB PO SCH (08:01)
[2016-08-04] MEDS: DULoxetine 30 MG CAP (CYMBALTA) PO SCH ×3 (08:01→20:11)
[2016-08-04] MEDS: THIAMINE 100 MG TAB PO SCH ×2 (08:01→20:11)
[2016-08-04] MEDS: NICOTINE POLACRILEX 2 MG GUM PO PRN ×4 (08:01→20:53)
[2016-08-04 11:18] VITALS: BP 156/94
--- NOTE | 2016-08-04 11:28 | IPN ---
DATE: 08/03/2016 MENTAL STATUS EXAMINATION: The patient today seems more relaxed and supple in terms of his affect that I have seen him before. Last night, we made a change and stopped Abilify and substituted Seroquel, 300 mg, XR nightly. As explained in my previous note, it was becoming too awkward to mange the akathisia side effects of Abilify because Cogentin we used for that creates its own side effects. Accordingly, we had stopped Abilify and started Seroquel, and today I will stop Cogentin as lingering Abilify is probably gone by now. The patient notes that he slept better. Although, he still hears some muffled voices but Seroquel was well tolerated and he woke up this morning with an element of refreshment. The patient is oriented times three. Judgment and insight seem to be improving. DIAGNOSTIC IMPRESSION: Remains major depression with psychotic features and polysubstance abuse. PLAN: Tonight increase Seroquel again to now 400 mg nightly and monitor for response/side effects. Again, the patient will be encouraged to be involved in a 30 day outpatient rehabilitation program once he is discharge from here.
[2016-08-04] MEDS: ACETAMINOPHEN TAB 650MG DOSE (2X325MG) PO PRN (13:18)
--- NOTE | 2016-08-04 15:51 | ECGEPIP ---
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
[2016-08-04 18:00] VITALS: BP 134/78
[2016-08-04] MEDS: QUEtiapine 300 MG XR TABLET(SEROQUEL XR) PO SCH (20:11)
[2016-08-04] MEDS: traZODone 50 MG TAB PO PRN (22:53)
[2016-08-05 06:37] VITALS: BP 161/93
[2016-08-05 06:53] VITALS: BP 145/95
[2016-08-05] MEDS: THIAMINE 100 MG TAB PO SCH ×2 (08:11→20:22)
[2016-08-05] MEDS: DULoxetine 30 MG CAP (CYMBALTA) PO SCH ×3 (08:11→20:22)
[2016-08-05] MEDS: FOLIC ACID 1 MG TAB PO SCH (08:11)
[2016-08-05] MEDS: MULTIVITAMINS/MINERALS THERAP 1 TAB PO SCH (08:11)
[2016-08-05] MEDS: hydrOXYzine 25 MG TAB PO PRN ×4 (08:11→21:12)
[2016-08-05] MEDS: BACITRACIN OINT 30GM TOP SCH ×2 (08:12→21:00)
[2016-08-05] MEDS: NICOTINE POLACRILEX 2 MG GUM PO PRN ×4 (08:24→22:04)
--- NOTE | 2016-08-05 10:26 | IPN ---
DATE: 08/04/2016 VITAL SIGNS: Temperature 95.5 tympanic, pulse 110, respiratory rate 16, blood pressure 127/89. MENTAL STATUS EXAMINATION: The patient reports he is somewhat better, but does not see a big difference between 300 and 400 mg of Seroquel at night. He in general is sleeping better, but is still having nightmares and disruptive sleep. We will now push up to 600 mg. He is fully oriented. Judgment and insight are considered to be gradually improving. DIAGNOSES: Remain major depression with psychotic features, polysubstance abuse. PLAN: Continue Seroquel titration. Continue to encourage the patient to consider 30 day drug rehabilitation programming.
[2016-08-05 18:00] VITALS: BP 144/64
[2016-08-05] MEDS: QUEtiapine 300 MG XR TABLET(SEROQUEL XR) PO SCH (20:22)
[2016-08-05] MEDS: ACETAMINOPHEN TAB 650MG DOSE (2X325MG) PO PRN (20:23)
[2016-08-05] MEDS: traZODone 50 MG TAB PO PRN (23:23)
[2016-08-06 06:29] VITALS: BP 136/90
[2016-08-06] MEDS: THIAMINE 100 MG TAB PO SCH ×2 (08:21→20:04)
[2016-08-06] MEDS: MULTIVITAMINS/MINERALS THERAP 1 TAB PO SCH (08:21)
[2016-08-06] MEDS: DULoxetine 30 MG CAP (CYMBALTA) PO SCH ×3 (08:21→20:04)
[2016-08-06] MEDS: FOLIC ACID 1 MG TAB PO SCH (08:21)
[2016-08-06] MEDS: hydrOXYzine 25 MG TAB PO PRN (08:22)
[2016-08-06] MEDS: BACITRACIN OINT 30GM TOP SCH ×2 (08:27→20:05)
[2016-08-06] MEDS: NICOTINE POLACRILEX 2 MG GUM PO PRN ×3 (09:53→22:11)
[2016-08-06] MEDS: ACETAMINOPHEN TAB 650MG DOSE (2X325MG) PO PRN (09:53)
[2016-08-06] MEDS: hydrOXYzine 50 MG TAB PO PRN ×3 (12:26→21:37)
[2016-08-06 18:00] VITALS: BP 128/76
[2016-08-06] MEDS: QUEtiapine 300 MG XR TABLET(SEROQUEL XR) PO SCH (20:05)
[2016-08-06] MEDS: traZODone 50 MG TAB PO PRN (22:11)
[2016-08-07 06:00] VITALS: BP 139/82
[2016-08-07] MEDS: hydrOXYzine 50 MG TAB PO PRN ×3 (06:13→17:52)
[2016-08-07] MEDS: BACITRACIN OINT 30GM TOP SCH ×2 (08:06→20:07)
[2016-08-07] MEDS: DULoxetine 30 MG CAP (CYMBALTA) PO SCH ×3 (08:06→20:07)
[2016-08-07] MEDS: FOLIC ACID 1 MG TAB PO SCH (08:06)
[2016-08-07] MEDS: THIAMINE 100 MG TAB PO SCH ×2 (08:06→20:07)
[2016-08-07] MEDS: MULTIVITAMINS/MINERALS THERAP 1 TAB PO SCH (08:06)
[2016-08-07] MEDS: NICOTINE POLACRILEX 2 MG GUM PO PRN ×4 (09:35→23:01)
[2016-08-07 18:00] VITALS: BP 138/84
[2016-08-07] MEDS: QUEtiapine 300 MG XR TABLET(SEROQUEL XR) PO SCH (20:07)
[2016-08-07] MEDS: traZODone 50 MG TAB PO PRN (22:25)
[2016-08-08] MEDS: hydrOXYzine 50 MG TAB PO PRN ×4 (01:09→21:26)
[2016-08-08] MEDS: NICOTINE POLACRILEX 2 MG GUM PO PRN ×4 (05:30→22:32)
[2016-08-08 07:02] VITALS: BP 160/86
[2016-08-08] MEDS: FOLIC ACID 1 MG TAB PO SCH (08:12)
[2016-08-08] MEDS: THIAMINE 100 MG TAB PO SCH ×2 (08:12→20:08)
[2016-08-08] MEDS: MULTIVITAMINS/MINERALS THERAP 1 TAB PO SCH (08:12)
[2016-08-08] MEDS: DULoxetine 30 MG CAP (CYMBALTA) PO SCH ×3 (08:12→20:08)
[2016-08-08] MEDS: BACITRACIN OINT 30GM TOP SCH ×2 (08:13→20:11)
[2016-08-08] MEDS: clonazePAM 1 MG TAB PO SCH (15:49)
[2016-08-08 18:00] VITALS: BP 140/90
[2016-08-08] MEDS: QUEtiapine 300 MG XR TABLET(SEROQUEL XR) PO SCH (20:10)
[2016-08-08] MEDS: traZODone 50 MG TAB PO PRN (21:55)
[2016-08-09 06:28] VITALS: BP 127/80
[2016-08-09] MEDS: hydrOXYzine 50 MG TAB PO PRN ×3 (08:18→19:04)
[2016-08-09] MEDS: FOLIC ACID 1 MG TAB PO SCH (08:18)
[2016-08-09] MEDS: BACITRACIN OINT 30GM TOP SCH ×2 (08:18→20:41)
[2016-08-09] MEDS: MULTIVITAMINS/MINERALS THERAP 1 TAB PO SCH (08:19)
[2016-08-09] MEDS: THIAMINE 100 MG TAB PO SCH ×2 (08:19→20:40)
[2016-08-09] MEDS: DULoxetine 30 MG CAP (CYMBALTA) PO SCH ×3 (08:19→20:40)
[2016-08-09] MEDS: NICOTINE POLACRILEX 2 MG GUM PO PRN ×3 (09:40→18:40)
--- NOTE | 2016-08-09 13:35 | IPN ---
DATE: 08/08/2016 Patient was seen today. He reports he has been having poor sleep, getting easily agitated. He reports in spite of taking Seroquel 600 mg at night, he has been sleeping only 2 hours. Appetite has been good. He reports hearing voices and increased anxiety levels. Patient has been noted to be pacing. Staff reported that he has been increasingly irritable. Care activity was reviewed which shows patient continues to walk the guzmán incessantly. He reportedly woke up at 3 a.m. and felt there was something that was moving around in his room. VITAL SIGNS: Temperature 96.0, pulse 95 per minute, respiratory rate 18 per minute, blood pressure 160/86. MENTAL STATUS EXAMINATION: Patient is a 31-year-old male who was noted to be restless, irritable easily. Mood is irritable, affect is flat. Thought process: Goal-directed. Thought content: Feelings of hopelessness and worthlessness. Fund of knowledge is poor. Insight and judgment is very limited. ASSESSMENT: Patient continues to be increasingly irritable and anxious. MANAGEMENT PLAN: I have added clonazepam 1 mg at 5 p.m. to target anxiety and irritability. This might also help him improve his sleep pattern. Continue Seroquel XR at 600 mg at night. Continue to monitor for irritability, auditory hallucinations, anxiety. Patient is also at risk of aggression.
[2016-08-09] MEDS: ACETAMINOPHEN TAB 650MG DOSE (2X325MG) PO PRN (13:40)
--- NOTE | 2016-08-09 17:18 | REP ---
RIGHT HAND, FOUR VIEWS: There is no evidence of an acute fracture, dislocation or intrinsic bone disease. IMPRESSION: No fracture or dislocation. Signed by Garret Alva MD 08/10/2016 04:49 P
[2016-08-09] MEDS: clonazePAM 1 MG TAB PO SCH (17:55)
[2016-08-09 18:00] VITALS: BP 132/80
[2016-08-09] MEDS: QUEtiapine 300 MG XR TABLET(SEROQUEL XR) PO SCH (20:41)
--- NOTE | 2016-08-09 21:15 | IPN ---
DATE: 08/09/2016 SUBJECTIVE: Steve is a 31-year-old man diagnosed with nonspecified depressive disorder who was admitted via the emergency room after his girlfriend called police to report that he had threatened to kill himself by cutting his throat with a computer technician knife. He has a long history of drug and alcohol problems. The patient also reports a history notable for cutting and burning himself since he was 15 years old. On admission to the unit, his suicide probability score was noted as 24. He reports today that he has been feeling quite stressed and complained of severe difficulty falling asleep. He also expressed frustration that child protective services (CPS) has not allowed him yet to see his children. CURRENT MEDICATIONS: - clonazepam 1 mg orally daily - quetiapine 600 mg orally at bedtime - duloxetine 30 mg orally three times daily These are in addition to his as-needed medications as well as routine medical medications that include vitamins. OBSERVATION: Client is noted to be fairly groomed and dressed. He relates in a hostile and angry manner. His speech is of normal volume. Thought process is devoid of any disorganization. He is noted to be irritable. No evidence of delusions; however, he expresses paranoid themes about staff not doing much to help him. He denies suicidal or homicidal ideation at this time, although expresses uncertainty about the future in terms of hurting himself. He does not appear to be responding to internal stimuli. ASSESSMENT: 1. Personality disorder, not otherwise specified 2. Depressive disorder. PLAN: He will be continued on the current medication. Patient would benefit more from an inpatient substance abuse treatment, as that seems to be his major problem at this time. Ongoing supportive therapy. [facility]
[2016-08-09] MEDS: traZODone 50 MG TAB PO PRN (22:46)
[2016-08-10] MEDS: hydrOXYzine 50 MG TAB PO PRN ×3 (06:13→19:32)
[2016-08-10 06:15] VITALS: BP 127/77
[2016-08-10] MEDS: DULoxetine 30 MG CAP (CYMBALTA) PO SCH ×3 (08:29→20:40)
[2016-08-10] MEDS: FOLIC ACID 1 MG TAB PO SCH (08:29)
[2016-08-10] MEDS: THIAMINE 100 MG TAB PO SCH ×2 (08:29→20:40)
[2016-08-10] MEDS: MULTIVITAMINS/MINERALS THERAP 1 TAB PO SCH (08:29)
[2016-08-10] MEDS: BACITRACIN OINT 30GM TOP SCH ×2 (08:29→20:41)
[2016-08-10] MEDS: risperiDONE 1 MG TAB PO SCH ×4 (10:14→20:40)
[2016-08-10] MEDS: ACETAMINOPHEN TAB 650MG DOSE (2X325MG) PO PRN (14:37)
[2016-08-10] MEDS: NICOTINE POLACRILEX 2 MG GUM PO PRN (14:37)
[2016-08-10] MEDS: clonazePAM 1 MG TAB PO SCH (17:53)
[2016-08-10 18:00] VITALS: BP 130/80
[2016-08-10] MEDS: GABAPENTIN 400 MG CAP PO SCH (20:40)
[2016-08-10] MEDS: QUEtiapine FUMARATE 200 MG TAB PO SCH (20:40)
[2016-08-11 06:30] VITALS: BP 139/83
[2016-08-11] MEDS: BACITRACIN OINT 30GM TOP SCH ×2 (09:00→20:07)
[2016-08-11] MEDS: NICOTINE POLACRILEX 2 MG GUM PO PRN ×3 (09:06→17:58)
[2016-08-11] MEDS: MULTIVITAMINS/MINERALS THERAP 1 TAB PO SCH (09:06)
[2016-08-11] MEDS: DULoxetine 30 MG CAP (CYMBALTA) PO SCH ×3 (09:06→20:11)
[2016-08-11] MEDS: risperiDONE 1 MG TAB PO SCH ×4 (09:06→20:11)
[2016-08-11] MEDS: FOLIC ACID 1 MG TAB PO SCH (09:06)
[2016-08-11] MEDS: THIAMINE 100 MG TAB PO SCH ×2 (09:06→20:11)
[2016-08-11] MEDS: hydrOXYzine 50 MG TAB PO PRN ×4 (09:08→20:11)
--- NOTE | 2016-08-11 11:12 | IPN ---
DATE: 08/10/2016 VITAL SIGNS: Temperature 95.1, pulse 75, respirations 20, blood pressure 127/77. CURRENT MEDICATIONS: - Cymbalta 30 mg three times a day - Klonopin 1 mg at 5:00 pm - Seroquel XR 600 mg nightly - trazodone 50 mg nightly as needed PSYCHIATRIC HISTORY: This is a 31-year-old white male, long history of substance use, specifically alcohol and opiates dating back to age 18. The patient started having psychotic symptoms, however, about two years prior he has heard voices since that time. Voices telling him that he is no good and that he is better off . He has impulses to cut himself. Voices tell him "do it". He hears his name being called constantly when nobody is there. The patient was admitted with the diagnosis of depression. He was treated for psychotic symptoms by Dr. Hogan. Initially on Abilify. There was a concern that he was having akasthisia as he was pacing so much. However, he was on just a low dosage of 4 to 5 mg at the time. He was then switched to Seroquel at increasing doses. He is tolerating the Seroquel apparently well, but is still having insomnia. He only gets two or three hours sleep at night maximum. He is still anxious during the daytime. He paces a lot, but he has always walked a lot as a calming mechanism over the years. He still feels depressed about his precipitating stressor. His girlfriend left him and is living with another man. When he thinks about this he cries. Other times his mood is better since being on the Cymbalta. He feels more hopeful. The patient is scheduled to go into a rehabilitation at [facility] next week. The patient states that his sister as a teenager was on Risperdal for a while and apparently tolerated it well. He also reports that his father has been treated with Neurontin in the past. He is willing to go on a trial of both of those medications. MENTAL STATUS EXAM: The patient is alert and oriented. He is highly anxious. He is on edge with some psychomotor restlessness and agitation. Affect is sad. Mood is mildly to moderately depressed. He does report significant auditory hallucinations. No signs of thought disorder. Insight and judgment are fair. No signs or organicity. IMPRESSION: Schizoaffective disorder, depressed. Alcohol use disorder. Opiate use disorder. Cannabis use disorder. PLAN: Switch patient from Seroquel XR to Seroquel immediate release. Start trial of Risperdal 1 mg four times a day to help with psychotic symptoms. Add gabapentin 400 mg nightly for sleep. MTDD
[2016-08-11] MEDS: clonazePAM 0.5 MG TAB PO SCH (17:29)
[2016-08-11 18:00] VITALS: BP 138/77
[2016-08-11] MEDS: GABAPENTIN 400 MG CAP PO SCH (20:11)
[2016-08-11] MEDS: QUEtiapine FUMARATE 200 MG TAB PO SCH (22:01)
[2016-08-12 06:43] VITALS: BP 134/95
[2016-08-12] MEDS: BACITRACIN OINT 30GM TOP SCH ×2 (08:07→21:00)
[2016-08-12] MEDS: hydrOXYzine 50 MG TAB PO PRN ×3 (08:10→20:18)
[2016-08-12] MEDS: MULTIVITAMINS/MINERALS THERAP 1 TAB PO SCH (08:10)
[2016-08-12] MEDS: FOLIC ACID 1 MG TAB PO SCH (08:10)
[2016-08-12] MEDS: DULoxetine 30 MG CAP (CYMBALTA) PO SCH ×3 (08:10→20:19)
[2016-08-12] MEDS: THIAMINE 100 MG TAB PO SCH ×2 (08:10→20:18)
[2016-08-12] MEDS: risperiDONE 1 MG TAB PO SCH ×4 (08:10→20:18)
[2016-08-12] MEDS: NICOTINE POLACRILEX 2 MG GUM PO PRN ×3 (14:20→23:02)
[2016-08-12] MEDS: clonazePAM 0.5 MG TAB PO SCH (17:03)
[2016-08-12] MEDS: GABAPENTIN 100 MG CAP PO SCH (17:03)
[2016-08-12 18:00] VITALS: BP 134/77
[2016-08-12] MEDS: GABAPENTIN 300 MG CAP PO SCH (20:18)
[2016-08-12] MEDS: QUEtiapine FUMARATE 200 MG TAB PO SCH (23:01)
[2016-08-13 06:13] VITALS: BP 144/74
[2016-08-13] MEDS: GABAPENTIN 100 MG CAP PO SCH (06:37)
[2016-08-13] MEDS: FOLIC ACID 1 MG TAB PO SCH (09:00)
[2016-08-13] MEDS: THIAMINE 100 MG TAB PO SCH ×2 (09:00→20:09)
[2016-08-13] MEDS: DULoxetine 30 MG CAP (CYMBALTA) PO SCH ×3 (09:00→20:09)
[2016-08-13] MEDS: BACITRACIN OINT 30GM TOP SCH ×2 (09:00→20:05)
[2016-08-13] MEDS: risperiDONE 1 MG TAB PO SCH ×4 (09:00→20:09)
[2016-08-13] MEDS: MULTIVITAMINS/MINERALS THERAP 1 TAB PO SCH (09:00)
[2016-08-13] MEDS: hydrOXYzine 50 MG TAB PO PRN ×3 (09:01→20:09)
[2016-08-13] MEDS: NICOTINE POLACRILEX 2 MG GUM PO PRN ×4 (09:01→23:15)
[2016-08-13] MEDS: ACETAMINOPHEN TAB 650MG DOSE (2X325MG) PO PRN ×2 (09:01→20:11)
[2016-08-13] MEDS: GABAPENTIN 300 MG CAP PO SCH ×3 (12:09→20:09)
--- NOTE | 2016-08-13 12:47 | IPN ---
DATE OF SERVICE: 08/11/2016 VITAL SIGNS: Temperature 95.7, pulse 70, respiration 18, blood pressure 139/83. CURRENT MEDICATION: - Risperdal 1 mg four times a day - Cymbalta 30 mg three times a day - trazodone 50 mg at bedtime as needed - gabapentin 400 mg at bedtime - Seroquel 600 mg at bedtime - Atarax 50 mg every 4 hours as needed PSYCHIATRIC HISTORY: The patient fell asleep during meditation group yesterday. According to staff, the patient has been feeling sleep deprived for a number of days. He did sleep quite nicely last night with the switch over to the immediate release Seroquel. He woke up this morning feeling much better. He is still hearing the voices. He describes them as "noises." He hears his name called but nobody is there. The content of the voices are typically paranoid in nature. The patient got some good news that his two young children, son age 3 and daughter age 6, will be coming in after New Years for visitation. This has helped his mood a great deal. He tolerated the change in medications well. He is willing to start reducing the Klonopin. This will need to be done prior to his transfer. MENTAL STATUS EXAMINATION: The patient is alert and oriented. The patient is still anxious but not as severe. Psychomotor restlessness also less prominent. Affect is still sad. Mood is moderately depressed. Auditory hallucinations persist but less prominent. No signs of thought disorder or dangerousness. Insight and judgment are fair. IMPRESSION: 1. Schizoaffective disorder, depressed. 2. Alcohol use disorder. 3. Opiate use disorder. 4. Cannabis use disorder. PLAN: Reduce Klonopin. The patient advised he is on two different antipsychotics. In general, we try to avoid polypharmacy with antipsychotics, but given the severity of his psychosis, it is clinically indicated.
[2016-08-13 18:00] VITALS: BP 128/77
[2016-08-13] MEDS: QUEtiapine FUMARATE 200 MG TAB PO SCH (23:15)
[2016-08-14 06:00] VITALS: BP 152/74
[2016-08-14] MEDS: GABAPENTIN 300 MG CAP PO SCH ×4 (07:25→20:23)
[2016-08-14] MEDS: DULoxetine 30 MG CAP (CYMBALTA) PO SCH ×3 (08:05→20:23)
[2016-08-14] MEDS: hydrOXYzine 50 MG TAB PO PRN ×4 (08:05→20:23)
[2016-08-14] MEDS: risperiDONE 1 MG TAB PO SCH (08:05)
[2016-08-14] MEDS: MULTIVITAMINS/MINERALS THERAP 1 TAB PO SCH (08:05)
[2016-08-14] MEDS: THIAMINE 100 MG TAB PO SCH ×2 (08:05→20:23)
[2016-08-14] MEDS: FOLIC ACID 1 MG TAB PO SCH (08:05)
[2016-08-14] MEDS: NICOTINE POLACRILEX 2 MG GUM PO PRN (08:07)
[2016-08-14] MEDS: BACITRACIN OINT 30GM TOP SCH ×2 (08:09→20:24)
[2016-08-14] MEDS: NICOTINE 21MG/24HR 1 EA TRANSDERMAL TD SCH (11:31)
[2016-08-14 18:00] VITALS: BP 155/93
[2016-08-14] MEDS: ACETAMINOPHEN TAB 650MG DOSE (2X325MG) PO PRN (20:23)
[2016-08-14] MEDS ORDERED: risperiDONE 3 MG TAB PO SCH (21:00)
[2016-08-14] MEDS: QUEtiapine FUMARATE 200 MG TAB PO SCH (22:34)
--- NOTE | 2016-08-15 05:37 | IPN ---
DATE OF VISIT: 08/13/2016 VITAL SIGNS: Temperature 96.5, pulse 107, respirations 18, blood pressure 144/74. CURRENT MEDICATIONS: - gabapentin 100 mg three times a day; 600 mg nightly - Klonopin 0.5 mg at 5 p.m. - Seroquel 600 mg nightly - Risperdal 1 mg four times a day - Cymbalta 30 mg three times a day PSYCHIATRIC HISTORY: The patient feels anxious about leaving the [facility]. He is worried about housing arrangements when he returns to this area. He wants to be close by his children. The patient still reports dealing with the psychotic symptoms; however, he states that they are less prominent. He still hears the noises and moving sensations but they are not as severe, the noises are not as severe either. He thinks the gabapentin has helped with his anxiety, is willing to increase the dosage. Plans are being made to discontinue his Klonopin as well as this will not be allowed at the rehabilitation. He is looking forward to his children visiting tomorrow. MENTAL STATUS EXAMINATION: The patient is still anxious but mood and affect are improved. Auditory hallucinations continue but not as severe. No signs of dangerousness. Insight and judgment appear fair. IMPRESSION: 1. Schizoaffective disorder. 2. Depressed. 3. Alcohol use disorder. 4. Opiate use disorder. 5. Cannabis use disorder. PLAN: Discontinue Klonopin, increase daytime gabapentin. We again discussed the issue of polypharmacy with two antipsychotics. This appears appropriate for this patient as he has had psychotic symptoms for 15 years prior to appropriate treatment.
[2016-08-15 06:04] VITALS: BP 133/79
[2016-08-15] MEDS: GABAPENTIN 300 MG CAP PO SCH ×4 (06:30→20:06)
[2016-08-15] MEDS: BACITRACIN OINT 30GM TOP SCH ×2 (09:00→20:05)
[2016-08-15] MEDS: MULTIVITAMINS/MINERALS THERAP 1 TAB PO SCH (09:18)
[2016-08-15] MEDS: THIAMINE 100 MG TAB PO SCH ×2 (09:18→20:06)
[2016-08-15] MEDS: DULoxetine 30 MG CAP (CYMBALTA) PO SCH ×3 (09:18→20:06)
[2016-08-15] MEDS: FOLIC ACID 1 MG TAB PO SCH (09:18)
[2016-08-15] MEDS: NICOTINE 21MG/24HR 1 EA TRANSDERMAL TD SCH (09:19)
[2016-08-15] MEDS: hydrOXYzine 50 MG TAB PO PRN ×4 (09:42→21:59)
[2016-08-15] MEDS: ACETAMINOPHEN TAB 650MG DOSE (2X325MG) PO PRN ×2 (13:20→20:07)
--- NOTE | 2016-08-15 16:21 | IPN ---
DATE: 08/15/2016 Temperature 96.2, pulse 80, respirations 16, blood pressure 133/79. CURRENT MEDICATIONS: - Risperdal 3 mg at bedtime - gabapentin 300 mg three times a day, 600 mg at bedtime - Seroquel 600 mg at bedtime - Cymbalta 30 mg three times a day - trazodone 50 mg at bedtime as needed PSYCHIATRIC HISTORY: Patient is anxious again about being discharged tomorrow and being transferred to [facility]. Change is hard for him. He woke up last night worried about the future. His voices were a little bit worse subsequently. Otherwise, his mood he reports is improved overall. He had a good visit with his children. He is tolerating the medications well. Patient will be leaving early tomorrow morning. MENTAL STATUS EXAMINATION: Patient is anxious and worried. Patient does report some dysphoria, but mood is not overtly depressed. He is not suicidal. Patient is still hearing voices but not as prominent. Paranoia is minimal. Insight and judgment seem improved. No current signs of dangerousness. IMPRESSION: 1. Schizoaffective disorder, depressed. 2. Alcohol use disorder. 3. Opiate use disorder. 3. Cannabis use disorder. PLAN: Continue psychotropics. We again discussed the need for polypharmacy of two antipsychotics concurrently given his treatment-resistant psychosis. Discharge tomorrow to chemical dependency inpatient program.
[2016-08-15 18:00] VITALS: BP 146/77
[2016-08-15] MEDS ORDERED: RISP4TAB33 PO (19:54)
[2016-08-15] MEDS ORDERED: SERO1TAB2 PO (19:54)
[2016-08-15] MEDS ORDERED: NEUR300C PO (19:54)
[2016-08-15] MEDS ORDERED: TRAZ50TA4 PO (19:54)
[2016-08-15] MEDS ORDERED: DULO30CA PO (19:54)
[2016-08-15] MEDS ORDERED: NEUR600T PO (19:54)
[2016-08-15] MEDS ORDERED: risperiDONE 2 MG TAB PO SCH (21:00)
[2016-08-15] MEDS: QUEtiapine FUMARATE 200 MG TAB PO SCH (22:20)
[2016-08-16] MEDS: MULTIVITAMINS/MINERALS THERAP 1 TAB PO SCH (06:20)
[2016-08-16] MEDS: GABAPENTIN 300 MG CAP PO SCH (06:20)
[2016-08-16] MEDS: FOLIC ACID 1 MG TAB PO SCH (06:20)
[2016-08-16] MEDS: DULoxetine 30 MG CAP (CYMBALTA) PO SCH (06:20)
[2016-08-16] MEDS: THIAMINE 100 MG TAB PO SCH (06:20)
[2016-08-16] MEDS: hydrOXYzine 50 MG TAB PO PRN (06:20)
[2016-08-16 06:27] VITALS: BP 131/81
--- NOTE | 2016-08-16 14:44 | MHDS ---
DATE OF ADMISSION: 07/21/2016 DATE OF DISCHARGE: 08/16/2016 VITAL SIGNS: Temperature 95.0, pulse 120, respirations 18, blood pressure 131/81. LABORATORY DATA: CBC and differential within normal limits. Chem survey: Calcium low at 8.3, chloride high at 10. Toxicology positive for cannabinoids and positive for ethyl alcohol at 0.191. DISCHARGE DIAGNOSES: 1. Schizoaffective disorder, depressed. 2. Alcohol use disorder. 3. Opiate use disorder. 4. Cannabis use disorder. DISCHARGE MEDICATIONS: - Cymbalta 30 mg three times a day - Seroquel 600 mg at night - Risperdal 4 mg at night - gabapentin 300 mg one three times a day - gabapentin 600 mg at night CHIEF COMPLAINT: The patient threatening to kill himself by cutting his throat with a tool repairer bench knife. HISTORY OF PRESENT ILLNESS: This is a 31-year-old white male with a long history of alcohol and drug use. He was seen on admission by Dr. Tae Hogan. His girlfriend broke up with him several months ago because of his drug and alcohol use. The patient was upset the night before the admission as she has a new boyfriend. He threatened to kill himself. The girlfriend called the police and the patient was brought to the emergency room. The patient has no previous psychiatric treatment, but does have a history of cutting and burning himself since the age of 15. PROGRESS ON THE UNIT: The patient was initially seen by Dr. Tae Hogan and placed on Seroquel at bedtime to help with insomnia with marginal benefit. The patient was given Seroquel XL preparation, which was not very effective. The patient was placed on Cymbalta, which was quite helpful for his depression. However, the patient does have a multiple situational stressors. Child Protective Services (CPS) is involved. The patient cannot have access to his young children unless he follows up with chemical dependency treatment, which he did agree to do so. The patient was transferred to my care when Dr. Hogan left the unit. The patient reported prominent psychotic symptoms and he has had auditory hallucinations for decades, burning and cutting appear to be related to the psychosis. He reports that the hallucinations predate his drug use by several years. He claims that the drug use was in part to self medicate. The patient's Seroquel was increased and switched to immediate release preparation. This did help him sleep, but he still had prominent psychotic symptoms. He was then started on Risperdal M tabs with some benefit. This was increased to 1 mg four times a day. He did have good medical compliance. He was then switched over to Risperdal 4 mg at night. He reported decrease in the auditory hallucinations. His paranoia alleviated. On , his children were allowed to visit, which he appreciated. This helped his mood. Staff made plans for him to followup at [facility]. The patient was agreeable to attend and has plans to afterwards return to the [facility]. The patient does appear to be reasonably motivated to followup with treatment. The patient is on two antipsychotics, which is considered polypharmacy. This issue was brought up with the patient due to his long-standing history of untreated psychosis. He appears to benefit from the combination at this point in time. Outpatient providers in the future can taper one of the antipsychotics as appropriate. MENTAL STATUS EXAMINATION: At the time of discharge, the patient had some anxiety and worry regarding discharge, but overall his mood was dramatically improved. He was definitely much calmer now that the auditory hallucinations are less prominent. The paranoia is much improved. The patient was not homicidal or suicidal. Insight and judgment appear reasonably good. Grooming and hygiene improved. ASSESSMENT: The patient has reached maximal hospital benefit. PLAN: The patient discharged earlier today to [facility] and will return here to the [facility] in approximately one month.
== END 2016-08-16 06:45 | DRG 750 ==
LOC: M ED 05:59 → M PSY 14:44
PROVIDERS: ADMIT Psychiatry & Neurology Psychiatry; ATTEND Psychiatry & Neurology Psychiatry
DX: F25.1 Schizoaffective disorder, depressive type (principal); F10.10 Alcohol abuse, uncomplicated; F12.90 Cannabis use, unspecified, uncomplicated; F11.90 Opioid use, unspecified, uncomplicated; Z79.899 Other long term (current) drug therapy; F17.210 Nicotine dependence, cigarettes, uncomplicated

== ENCOUNTER 2016-11-21 16:26 | Emergency (ER) | payer MEDICAID, OTHER, SELFPAY ==
[~2016-11-21] VITALS: Ht 180.3 cm; Wt 95.3 kg
[~2016-11-21 16:26] MED LIST: DULO30CA PO; NEUR300C PO; NEUR600T PO; RISP4TAB33 PO; SERO1TAB2 PO; TRAZ50TA4 PO
[2016-11-21] MEDS ORDERED: PRAZ1CAP PO ×2 (17:02→19:03)
[2016-11-21] MEDS ORDERED: RISP2TAB30 PO (17:02)
[2016-11-21] MEDS ORDERED: HYDR-4274 PO ×2 (17:02→19:03)
[2016-11-21 18:16] LABS: MEAN CORPUSCULAR HEMOGLOBIN 30.9 pg (27.0-33.0); MEAN CORPUSCULAR HGB CONC 34.2 g/dl (32.0-36.5); MEAN CORPUSCULAR VOLUME 90.5 fl (80.0-96.0); RED CELL DISTRIBUTION WIDTH 12.5 % (11.5-14.5); WHITE BLOOD COUNT 10.3 K/mm3 (4.0-10.0)
[2016-11-21 18:36] LABS: METHADONE URINE NEGATIVE (NEGATIVE)
[2016-11-21 18:44] LABS: ALBUMIN 4.1 GM/DL (3.2-5.2); ALBUMIN/GLOBULIN RATIO 1.46 (1.00-1.93); ALKALINE PHOSPHATASE 73 U/L (45-117); ALT/SGPT 22 U/L (12-78); ANION GAP 7 MEQ/L (8-16); AST/SGOT 10 U/L (15-37); BILIRUBIN,DIRECT 0.1 MG/DL (0.0-0.2); BILIRUBIN,TOTAL 0.4 MG/DL (0.2-1.0); BLOOD UREA NITROGEN 11 MG/DL (7-18); CALCIUM LEVEL 8.7 MG/DL (8.5-10.1); CARBON DIOXIDE LEVEL 26 MEQ/L (21-32); CHLORIDE LEVEL 107 MEQ/L (98-107); CREATININE FOR GFR 0.94 MG/DL (0.70-1.30); GLOMERULAR FILTRATION RATE > 60.0 (>60); GLUCOSE, FASTING 91 MG/DL (70-105); POTASSIUM SERUM 4.3 MEQ/L (3.5-5.1); SODIUM LEVEL 140 MEQ/L (136-145); TOTAL PROTEIN 6.9 GM/DL (6.4-8.2)
[2016-11-21] MEDS ORDERED: CYMB1CAP5 PO (19:02)
[2016-11-21] MEDS ORDERED: RISP2TAB3 PO (19:04)
[2016-11-21] MEDS ORDERED: QUET1TAB10 PO (19:04)
[2016-11-21 19:45] VITALS: BP 138/81
== END 2016-11-21 19:48 | disposition home or self-care (01) ==
LOC: M ED 18:55
DX: F20.81 Schizophreniform disorder (principal); F32.9 Major depressive disorder, single episode, unspecified; F17.210 Nicotine dependence, cigarettes, uncomplicated; Z79.899 Other long term (current) drug therapy; F41.9 Anxiety disorder, unspecified
CPT/HCPCS: 36415; 80048; 80076; 80306; 84443; 85027; 99284; G0480

== ENCOUNTER → 2017-01-11 | Outpatient (CLI) | payer OTHER ==
[~2017-01-11] MED LIST changes: +CYMB1CAP5 PO; +HYDR-4274 PO; +PRAZ1CAP PO; +QUET1TAB10 PO; +RISP2TAB3 PO; +RISP2TAB30 PO
[2017-01-11 12:53] LABS: MEAN CORPUSCULAR HEMOGLOBIN 31.6 pg (27.0-33.0); MEAN CORPUSCULAR HGB CONC 35.2 g/dl (32.0-36.5); MEAN CORPUSCULAR VOLUME 89.7 fl (80.0-96.0); RED CELL DISTRIBUTION WIDTH 12.8 % (11.5-14.5); WHITE BLOOD COUNT 7.8 K/mm3 (4.0-10.0)
[2017-01-11 13:22] LABS: ALBUMIN 3.8 GM/DL (3.2-5.2); ALBUMIN/GLOBULIN RATIO 1.31 (1.00-1.93); ALKALINE PHOSPHATASE 70 U/L (45-117); ALT/SGPT 23 U/L (12-78); ANION GAP 8 MEQ/L (8-16); AST/SGOT 10 U/L (15-37); BILIRUBIN,TOTAL 0.5 MG/DL (0.2-1.0); BLOOD UREA NITROGEN 10 MG/DL (7-18); CALCIUM LEVEL 8.9 MG/DL (8.5-10.1); CARBON DIOXIDE LEVEL 26 MEQ/L (21-32); CHLORIDE LEVEL 108 MEQ/L (98-107); CREATININE FOR GFR 0.99 MG/DL (0.70-1.30); GLOMERULAR FILTRATION RATE > 60.0 (>60); GLUCOSE, FASTING 97 MG/DL (70-105); MAGNESIUM LEVEL 2.2 MG/DL (1.8-2.4); POTASSIUM SERUM 4.2 MEQ/L (3.5-5.1); SODIUM LEVEL 142 MEQ/L (136-145); TOTAL PROTEIN 6.7 GM/DL (6.4-8.2)
--- NOTE | 2017-01-12 01:28 | REP ---
Clinical: Wheezing . Comparison: 10/28/2007 the . Technique: PA and lateral. Findings: The mediastinum and cardiac silhouette are normal. The lung caraballo are clear and without acute consolidation, effusion, or pneumothorax. The skeletal structures are intact and normal. Impression: 1. No acute cardiopulmonary process. 2. If the patient remains symptomatic consider chest CT for further investigation. Signed by Michael Gillespie MD 01/12/2017 01:19 A
== END ==
LOC: M LAB 11:39
PROVIDERS: ATTEND Nurse Practitioner Family
DX: Z13.9 Encounter for screening, unspecified (principal); R06.2 Wheezing; Z72.0 Tobacco use; R42 Dizziness and giddiness; R25.1 Tremor, unspecified; F06.4 Anxiety disorder due to known physiological condition; F32.9 Major depressive disorder, single episode, unspecified

== ENCOUNTER → 2017-01-11 | Outpatient (CLI) | payer OTHER ==
[2017-01-11 12:54] LABS: MEAN CORPUSCULAR HEMOGLOBIN 31.3 pg (27.0-33.0); MEAN CORPUSCULAR HGB CONC 34.9 g/dl (32.0-36.5); MEAN CORPUSCULAR VOLUME 89.8 fl (80.0-96.0); RED CELL DISTRIBUTION WIDTH 12.7 % (11.5-14.5); WHITE BLOOD COUNT 8.1 K/mm3 (4.0-10.0)
[2017-01-11 13:24] LABS: ALBUMIN 3.9 GM/DL (3.2-5.2); ALBUMIN/GLOBULIN RATIO 1.34 (1.00-1.93); ALKALINE PHOSPHATASE 72 U/L (45-117); ALT/SGPT 25 U/L (12-78); ANION GAP 8 MEQ/L (8-16); AST/SGOT 12 U/L (15-37); BILIRUBIN,TOTAL 0.4 MG/DL (0.2-1.0); BLOOD UREA NITROGEN 9 MG/DL (7-18); CALCIUM LEVEL 9.1 MG/DL (8.5-10.1); CARBON DIOXIDE LEVEL 26 MEQ/L (21-32); CHLORIDE LEVEL 108 MEQ/L (98-107); CHOLESTEROL LEVEL 193 MG/DL (<200); CREATININE FOR GFR 0.97 MG/DL (0.70-1.30); GLOMERULAR FILTRATION RATE > 60.0 (>60); GLUCOSE, FASTING 96 MG/DL (70-105); POTASSIUM SERUM 4.1 MEQ/L (3.5-5.1); SODIUM LEVEL 142 MEQ/L (136-145); TOTAL PROTEIN 6.8 GM/DL (6.4-8.2); TRIGLYCERIDES LEVEL 118 MG/DL (<150)
== END ==
LOC: M LAB 11:44
PROVIDERS: ATTEND Nurse Practitioner Family
DX: F31.5 Bipolar disorder, current episode depressed, severe, with psychotic features (principal)

== ENCOUNTER 2018-03-11 18:05 | Emergency (ER) | payer OTHER ==
[2018-03-11 19:39] LABS: ANION GAP 7 MEQ/L (8-16); BLOOD UREA NITROGEN 10 MG/DL (7-18); CALCIUM LEVEL 8.5 MG/DL (8.5-10.1); CARBON DIOXIDE LEVEL 29 MEQ/L (21-32); CHLORIDE LEVEL 111 MEQ/L (98-107); CREATININE FOR GFR 0.99 MG/DL (0.70-1.30); GLOMERULAR FILTRATION RATE > 60.0 (>60); GLUCOSE, FASTING 95 MG/DL (70-100); POTASSIUM SERUM 4.1 MEQ/L (3.5-5.1); SODIUM LEVEL 147 MEQ/L (136-145)
[2018-03-11 19:40] LABS: HEMATOCRIT 38.2 % (42.0-52.0); HEMOGLOBIN 12.9 g/dl (13.5-17.5); MEAN CORPUSCULAR HEMOGLOBIN 31.7 pg (27.0-33.0); MEAN CORPUSCULAR HGB CONC 33.8 g/dl (32.0-36.5); MEAN CORPUSCULAR VOLUME 93.9 fl (80.0-96.0); PLATELET COUNT, AUTOMATED 207 10^3/uL (150-450); RED BLOOD COUNT 4.07 10^6/uL (4.30-6.10); RED CELL DISTRIBUTION WIDTH 12.6 % (11.5-14.5); WHITE BLOOD COUNT 12.1 10^3/uL (4.0-10.0)
[2018-03-11] MEDS ORDERED: ISOVUE-370 76% 100ML VIAL (Q9967) As Ordered (19:52)
== END 2018-03-11 21:02 | disposition home or self-care (01) ==
LOC: M ED 18:05
DX: S20.212A Contusion of left front wall of thorax, initial encounter (principal); S05.12XA Contusion of eyeball and orbital tissues, left eye, initial encounter; W10.8XXA Fall (on) (from) other stairs and steps, initial encounter; Y92.098 Other place in other non-institutional residence as the place of occurrence of the external cause; K21.9 Gastro-esophageal reflux disease without esophagitis; F41.9 Anxiety disorder, unspecified; F32.9 Major depressive disorder, single episode, unspecified; F20.9 Schizophrenia, unspecified; R51 Headache; F17.200 Nicotine dependence, unspecified, uncomplicated
CPT/HCPCS: Q9967

== ENCOUNTER 2018-03-19 17:32 | Emergency (ER) | payer OTHER ==
[2018-03-19] MEDS: LIDOCAINE 1% MDV 20ML VIAL SC (18:15)
== END 2018-03-19 19:12 | disposition home or self-care (01) ==
LOC: M ED 17:32
DX: S61.412A Laceration without foreign body of left hand, initial encounter (principal); W26.8XXA Contact with other sharp object(s), not elsewhere classified, initial encounter; Y92.9 Unspecified place or not applicable; Y93.89 Activity, other specified; Y99.9 Unspecified external cause status; K21.9 Gastro-esophageal reflux disease without esophagitis; F41.9 Anxiety disorder, unspecified; F32.9 Major depressive disorder, single episode, unspecified; F20.9 Schizophrenia, unspecified; Z72.0 Tobacco use
CPT/HCPCS: 12002

== ENCOUNTER 2019-08-27 12:07 | Emergency (ER) | payer OTHER ==
[~2019-08-27] VITALS: Ht 180.3 cm; Wt 104.2 kg
[~2019-08-27 12:07] MED LIST changes: -DULO30CA PO; +DULO30CA9 PO; -HYDR-4274 PO; +HYDR50TA70 PO; -RISP2TAB30 PO; +RISP2TAB32 PO; +TRAZ-252 PO; -TRAZ50TA4 PO
--- NOTE | 2019-08-27 13:05 | REP ---
RIGHT HAND, FOUR VIEWS: There is no evidence of an acute fracture, dislocation or intrinsic bone disease. IMPRESSION: No fracture or dislocation. Electronically Signed by Garret Alva MD 08/27/2019 05:38 P
[2019-08-27] MEDS ORDERED: DOXY100C37 PO (13:13)
[2019-08-27 13:28] VITALS: BP 136/81
== END 2019-08-27 13:29 | disposition home or self-care (01) ==
LOC: M ED 12:07
DX: S60.414A Abrasion of right ring finger, initial encounter (principal); L03.011 Cellulitis of right finger; X58.XXXA Exposure to other specified factors, initial encounter; K21.9 Gastro-esophageal reflux disease without esophagitis; F33.9 Major depressive disorder, recurrent, unspecified; F41.9 Anxiety disorder, unspecified; F20.9 Schizophrenia, unspecified; F17.210 Nicotine dependence, cigarettes, uncomplicated

== ENCOUNTER 2020-02-14 14:28 | Emergency (ER) | payer OTHER ==
[~2020-02-14] VITALS: Ht 180.3 cm; Wt 101.1 kg
[~2020-02-14 14:28] MED LIST changes: +DOXY100C37 PO
[2020-02-14] MEDS ORDERED: IBUP200C25 PO (14:39)
--- NOTE | 2020-02-14 15:09 | REP ---
Clinical: Trauma. Fall. Technique: Internal rotation, external rotation, and Y view of the right shoulder. Findings: There is a nondisplaced curvilinear fracture involving the greater tuberosity of the proximal humerus with overlying soft tissue swelling. Remainder examination appears normal. Impression: Nondisplaced fracture involving the greater tuberosity of the proximal humerus. Electronically Signed by Michael Gillespie MD 02/14/2020 03:01 P
[2020-02-14] MEDS ORDERED: NORC1TAB7 PO (15:32)
[2020-02-14 15:41] VITALS: BP 127/67
== END 2020-02-14 15:42 | disposition home or self-care (01) ==
LOC: M ED 14:28
DX: S42.254A Nondisplaced fracture of greater tuberosity of right humerus, initial encounter for closed fracture (principal); W10.8XXA Fall (on) (from) other stairs and steps, initial encounter; F17.200 Nicotine dependence, unspecified, uncomplicated; Y92.9 Unspecified place or not applicable; Y93.9 Activity, unspecified; Y99.9 Unspecified external cause status

== ENCOUNTER → 2020-05-12 | Outpatient (RCR) | payer OTHER ==
[~2020-05-12] MED LIST changes: +IBUP200C25 PO; +NORC1TAB7 PO
== END ==
LOC: M PT 04-29 12:39
PROVIDERS: ATTEND Orthopaedic Surgery
DX: S42.254D Nondisplaced fracture of greater tuberosity of right humerus, subsequent encounter for fracture with routine healing (principal); X58.XXXD Exposure to other specified factors, subsequent encounter; Y92.9 Unspecified place or not applicable

== ENCOUNTER 2020-05-25 13:09 | Outpatient (RCR) | payer OTHER | END 2020-06-12 | LOC: M PT 13:09 | PROVIDERS: ATTEND Orthopaedic Surgery | DX: S42.254D Nondisplaced fracture of greater tuberosity of right humerus, subsequent encounter for fracture with routine healing (principal); X58.XXXD Exposure to other specified factors, subsequent encounter; Y92.9 Unspecified place or not applicable ==

== ENCOUNTER → 2020-10-29 | Outpatient (CLI) | payer OTHER ==
[~2020-10-29] MED LIST changes: -QUET1TAB10 PO; +QUET300T2 PO; +RISP-9 PO; -RISP2TAB3 PO
[2020-10-29 17:24] LABS: BASO # 0.1 10^3/uL (0.0-0.2); BASO % 0.5 % (0.0-1.0); EOS # 0.5 10^3/uL (0.0-0.5); HEMATOCRIT 47.7 % (42.0-52.0); HEMOGLOBIN 16.6 g/dl (13.5-17.5); LYMPH # 3.2 10^3/uL (1.5-5.0); MEAN CORPUSCULAR HEMOGLOBIN 32.4 pg (27.0-33.0); MEAN CORPUSCULAR HGB CONC 34.8 g/dl (32.0-36.5); MEAN CORPUSCULAR VOLUME 93.2 fl (80.0-96.0); MONO # 0.7 10^3/uL (0.0-0.8); NEUTROPHILS # 5.7 10^3/uL (1.5-8.5); PLATELET COUNT, AUTOMATED 243 10^3/uL (150-450); RED BLOOD COUNT 5.12 10^6/uL (4.30-6.10); WHITE BLOOD COUNT 10.2 10^3/uL (4.0-10.0)
[2020-10-29 17:58] LABS: ALBUMIN 4.2 GM/DL (3.2-5.2); ALT/SGPT 105 U/L (12-78); BILIRUBIN,TOTAL 0.5 MG/DL (0.2-1.0); BLOOD UREA NITROGEN 13 MG/DL (7-18); CALCIUM LEVEL 9.4 MG/DL (8.5-10.1); CARBON DIOXIDE LEVEL 26 MEQ/L (21-32); CHLORIDE LEVEL 107 MEQ/L (98-107); CREATININE FOR GFR 0.98 MG/DL (0.70-1.30); FOLATE 12.8 NG/ML (>5.4); GLOMERULAR FILTRATION RATE > 60.0 (>60); GLUCOSE, FASTING 99 MG/DL (70-100); NT-PRO BNP 44 PG/ML (<125); POTASSIUM SERUM 4.4 MEQ/L (3.5-5.1); SODIUM LEVEL 139 MEQ/L (136-145); TOTAL PROTEIN 7.3 GM/DL (6.4-8.2); VITAMIN B12 LEVEL 970 PG/ML (247-911)
--- NOTE | 2020-10-30 19:40 | REP ---
INDICATION: DYSPNEA, LAB 1ST THEN XR COMPARISON: 01/11/2017 TECHNIQUE: PA and lateral. FINDINGS: Elevation to the right hemidiaphragm is a relatively new finding and requires correlation and further investigation. Associated right basilar fibroatelectatic changes are suggested. Left hemithorax is clear. Mediastinum and cardiac silhouette are normal. Skeletal structures are intact. IMPRESSION: Elevation of the right hemidiaphragm relatively new as compared with most recent prior examination of 2017. Correlation is required. <Electronically signed by Michale Gillespie > 10/30/201935
== END ==
LOC: M LAB 16:54
PROVIDERS: ATTEND Pediatrics
DX: J98.6 Disorders of diaphragm (principal)

== ENCOUNTER → 2020-12-22 | Outpatient (CLI) | payer OTHER ==
--- NOTE | 2020-12-22 08:57 | REP ---
INDICATION: F10.20 ELEVATED LFT'S COMPARISON: None. TECHNIQUE: Real time newell scale ultrasound examination using curved array transducer. 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 Liver is hyperechoic with poor through transmission suggesting fatty infiltration. No focal hepatic lesions are identified. The gallbladder is contracted and poorly evaluated. No obvious biliary ductal dilatation is appreciated although the common bile duct is not identified. The pancreas is incompletely evaluated. The right kidney is normal in reniform shape without hydronephrosis and measures 9.5 x 6.5 x 6.7 cm. No ascites in the visualized right upper quadrant. IMPRESSION: Significantly limited examination. Hepatosteatosis noted. Consider pre and postcontrast CT of the abdomen if necessary <Electronically signed by Michael Gillespie > 12/22/20 0838
== END ==
LOC: M RAD 07:42
PROVIDERS: ATTEND Pediatrics
DX: F10.20 Alcohol dependence, uncomplicated (principal)

== ENCOUNTER → 2021-02-22 | Outpatient (CLI) | payer OTHER ==
[~2021-02-22] MED LIST changes: -DOXY100C37 PO; +DOXY1CAP62 PO
--- NOTE | 2021-02-22 17:16 | REP ---
INDICATION: DISORDERS OF DIAPHRAGM. COMPARISON: None. TECHNIQUE: Procedure was performed under the direct supervision of Dr. Shin. The images were reviewed with Dr. Shin. Using fluoroscopy and last image hold technology, the patient was instructed to take 2 deep inhalations and then 2 sniffs. Images demonstrate elevation of the right hemidiaphragm as seen on a previous chest x-ray dated 10/29/2020. There is slight paradoxical motion of the right hemidiaphragm with sniffing. FINDINGS: There is slight paradoxical motion of the right hemidiaphragm with sniffing. IMPRESSION: There is slight paradoxical motion of the right hemidiaphragm with sniffing. <Electronically signed by Juan F Gonzalez > 02/22/21 1651 <Electronically signed by Sudarshan Shin > 02/22/21 1712
== END ==
LOC: M RAD 10:22
PROVIDERS: ATTEND Physician Assistant
DX: J98.6 Disorders of diaphragm (principal)

== ENCOUNTER → 2021-03-03 | Outpatient (CLI) | payer OTHER ==
--- NOTE | 2021-03-03 15:21 | PFTRPT ---
Site: [facility], [address] [place] [address], [id number] ID: [id number] Name: MEERA SOARES Visit Date: 03/03/2021 Second ID: [id number] Referring Doctor: JERMAINE Hurst Marcus, M Reviewing Doctor: Chavez Whitehead MD Industrial Custodian: Erin PEREZ RRT Age: 35 : 1985 Sex: Male Race: Height: 70.00 Inches Weight: 245.00 Lbs BSA: 2.28 Order IDs: [id number] Requested Test(s): <RESP-PFT.PFT B/A> Diagnosis: R06.00 test meet the ATS standards for acceptability and repeatability. Pt was given four puffs of albuterol for post bronchodilator. Review Status: Not Reviewed Pre-Bronch Post-Bronch Pred Actual %Pred Actual %Chng SPIROMETRY FVC (L) 5.40 3.14 58 3.47 10 FEV1 (L) 4.35 2.44 56 2.86 17 FEV1/FVC (%) 81 78 95 82 6 FEF 25% (L/sec) 8.87 5.48 61 7.15 30 FEF 50% (L/sec) 6.00 2.78 46 4.60 65 FEF 75% (L/sec) 2.17 0.81 37 1.72 112 FEF 25-75% (L/sec) 4.24 2.11 49 3.71 76 FEF Max (L/sec) 10.25 6.76 65 7.78 15 FIVC (L) 3.04 3.38 11 FIF 50% (L/sec) 5.38 4.68 87 5.76 23 FIF Max (L/sec) 4.75 5.78 21 MVV (L/min) 172 96 55 Expiratory Time (sec) 7.10 6.44 -9 Back Extrap Vol (L) 0.08 0.11 35 Time To FEFmax (sec) 0.076 0.079 3 LUNG VOLUMES SVC (L) 5.19 3.46 66 IC (L) 3.50 3.09 88 ERV (L) 1.69 0.37 21 TGV (L) 3.41 2.52 74 RV (Pleth) (L) 1.72 2.15 125 TLC (Pleth) (L) 6.91 5.61 81 RV/TLC (Pleth) (%) 25 38 153 DIFFUSION DLCOunc (ml/min/mmHg) 34.22 24.87 72 DLCOcor (ml/min/mmHg) 34.22 24.47 71 DL/VA (ml/min/mmHg/L) 4.95 4.91 99 VA (L) 6.91 4.99 72 BHT (sec) 9.74 IVC (L) 3.45 TLC (SB) (L) 5.14 AIRWAYS RESISTANCE Raw (cmH2O/L/s) 1.45 0.89 61 Gaw (L/s/cmH2O) 1.03 1.14 110 sRaw (cmH2O*s) 4.76 2.35 49 sGaw (1/cmH2O*s) 0.20 0.43 215 BLOOD GASES Hgb (gm/dL) 15.2
== END ==
LOC: M CARPUL 10:51
PROVIDERS: ATTEND Physician Assistant
DX: R06.00 Dyspnea, unspecified (principal)

== ENCOUNTER → 2021-03-14 | Outpatient (CLI) | payer OTHER ==
[2021-03-14 11:48] LABS: BASO % 0.3 % (0.0-1.0); EOS # 0.6 10^3/uL (0.0-0.5); EOS % 6.1 % (0.0-3.0); HEMATOCRIT 43.6 % (42.0-52.0); HEMOGLOBIN 14.9 g/dl (13.5-17.5); LYMPH # 3.1 10^3/uL (1.5-5.0); LYMPH % 34.5 % (24.0-44.0); MEAN CORPUSCULAR HEMOGLOBIN 32.5 pg (27.0-33.0); MEAN CORPUSCULAR HGB CONC 34.2 g/dl (32.0-36.5); MONO # 0.8 10^3/uL (0.0-0.8); MONO % 8.6 % (2.0-8.0); NEUTROPHILS # 4.5 10^3/uL (1.5-8.5); NEUTROPHILS % 49.9 % (36.0-66.0); PLATELET COUNT, AUTOMATED 244 10^3/uL (150-450); RED BLOOD COUNT 4.59 10^6/uL (4.30-6.10)
[2021-03-14 12:30] LABS: ALBUMIN 3.9 GM/DL (3.2-5.2); ALT/SGPT 103 U/L (12-78); BILIRUBIN,DIRECT 0.1 MG/DL (0.0-0.2); BILIRUBIN,TOTAL 0.4 MG/DL (0.2-1.0); BLOOD UREA NITROGEN 14 MG/DL (7-18); CALCIUM LEVEL 9.3 MG/DL (8.5-10.1); CARBON DIOXIDE LEVEL 29 MEQ/L (21-32); CHLORIDE LEVEL 108 MEQ/L (98-107); CREATININE FOR GFR 0.91 MG/DL (0.70-1.30); FERRITIN 220 NG/ML (26-388); GLOMERULAR FILTRATION RATE > 60.0 (>60); GLUCOSE, FASTING 90 MG/DL (70-100); NT-PRO BNP 61 PG/ML (<125); POTASSIUM SERUM 5.2 MEQ/L (3.5-5.1); SODIUM LEVEL 142 MEQ/L (136-145); TOTAL PROTEIN 6.9 GM/DL (6.4-8.2)
[2021-03-14 12:35] LABS: FOLATE 12.8 NG/ML (>5.4); VITAMIN B12 LEVEL 874 PG/ML (247-911)
[2021-03-14 12:45] LABS: HEPATITIS B SURFACE ANTIGEN NEGATIVE (NEGATIVE)
[2021-03-14 13:12] LABS: HEPATITIS C VIRUS ABY INDEX 0.1 INDEX (<0.8)
[2021-03-14 13:13] LABS: HEPATITIS B CORE ANTIBODY IGM NEGATIVE (NEGATIVE)
[2021-03-14 13:14] LABS: HEPATITIS A ANTIBODY IGM NEGATIVE (NEGATIVE)
[2021-03-14 13:15] LABS: HIV 1&2 SCREEN CENTAUR NEGATIVE (NEGATIVE)
== END ==
LOC: M LAB 10:31
PROVIDERS: ATTEND Pediatrics
DX: F10.20 Alcohol dependence, uncomplicated (principal); E66.9 Obesity, unspecified; Z68.32 Body mass index [BMI] 32.0-32.9, adult; R06.00 Dyspnea, unspecified

== ENCOUNTER 2022-09-15 14:53 | Emergency (ER) | payer OTHER ==
[~2022-09-15] VITALS: Ht 180.3 cm; Wt 108.6 kg
[~2022-09-15 14:53] MED LIST changes: +DOXY-443 PO; -DOXY1CAP62 PO
[2022-09-15 15:34] LABS: BASO # 0.1 10^3/uL (0.0-0.2); BASO % 0.5 % (0.0-1.0); EOS # 0.9 10^3/uL (0.0-0.5); EOS % 7.7 % (0.0-3.0); HEMATOCRIT 48.5 % (42.0-52.0); HEMOGLOBIN 16.6 g/dl (13.5-17.5); MEAN CORPUSCULAR HGB CONC 34.2 g/dl (32.0-36.5); MEAN CORPUSCULAR VOLUME 93.6 fl (80.0-96.0); MONO # 0.9 10^3/uL (0.0-0.8); MONO % 7.7 % (2.0-8.0); NEUTROPHILS # 5.2 10^3/uL (1.5-8.5); NEUTROPHILS % 47.7 % (36.0-66.0); PLATELET COUNT, AUTOMATED 261 10^3/uL (150-450); RED BLOOD COUNT 5.18 10^6/uL (4.30-6.10)
[2022-09-15 16:01] LABS: BLOOD UREA NITROGEN 15 MG/DL (9-23); CALCIUM LEVEL 9.3 MG/DL (8.5-10.1); CARBON DIOXIDE LEVEL 25 MMOL/L (20-31); CHLORIDE LEVEL 106 MMOL/L (98-107); CREATININE FOR GFR 0.94 MG/DL (0.70-1.30); GLOMERULAR FILTRATION RATE > 60.0 (>60); GLUCOSE, FASTING 101 MG/DL (60-100); SODIUM LEVEL 138 MMOL/L (136-145)
[2022-09-15] MEDS ORDERED: KETOROLAC 30 MG/ML 1ML VIAL IV ONE (17:35)
[2022-09-15] MEDS ORDERED: ONDANSETRON 4MG 2ML VIAL IV ONE (17:35)
[2022-09-15 19:17] VITALS: BP 154/101
[2022-09-15] MEDS ORDERED: KETO10TAB PO (19:37)
[2022-09-15 20:23] LABS: ALBUMIN 4.4 G/DL (3.2-5.2); ALKALINE PHOSPHATASE 72 U/L (46-116); ALT/SGPT 89 U/L (7.0-40); AST/SGOT 51 U/L (<34); BILIRUBIN,DIRECT 0.1 MG/DL (<0.4); BILIRUBIN,TOTAL 0.4 MG/DL (0.3-1.2); TOTAL PROTEIN 7.4 G/DL (5.7-8.2)
== END 2022-09-15 20:15 | disposition home or self-care (01) ==
LOC: M ED 14:53
DX: K76.0 Fatty (change of) liver, not elsewhere classified (principal); M51.36 Other intervertebral disc degeneration, lumbar region; F10.10 Alcohol abuse, uncomplicated; Z87.891 Personal history of nicotine dependence; Z79.899 Other long term (current) drug therapy
CPT/HCPCS: 74176; 80048; 80076; 81002; 85025; 96374; 96375; 99284; J1885; J2405

== ENCOUNTER → 2022-09-19 | Outpatient (REF) | payer OTHER ==
[~2022-09-19] MED LIST changes: +KETO10TAB PO
== END ==
LOC: M LAB REF 17:24
PROVIDERS: ATTEND Pediatrics
DX: R10.9 Unspecified abdominal pain (principal)

== ENCOUNTER 2023-01-06 15:37 | Inpatient (IN) | payer MEDICAID, OTHER ==
[~2023-01-06] VITALS: Ht 180.3 cm; Wt 109.1 kg
[~2023-01-06 15:37] MED LIST changes: +FOLIC ACID 1MG TAB PO SCH; +MULTIVITAMINS/MINERALS THERAP 1 TAB PO SCH
[2023-01-06] MEDS ORDERED: NS 1,000 ML IV SCH (15:50)
[2023-01-06] MEDS ORDERED: LORazepam 2 MG TAB PO PRN ×2 (16:05→20:05)
[2023-01-06 16:33] LABS: BASO % 0.5 % (0.0-1.0); EOS # 0.2 10^3/uL (0.0-0.5); EOS % 2.1 % (0.0-3.0); HEMATOCRIT 44.5 % (42.0-52.0); HEMOGLOBIN 15.2 g/dl (13.5-17.5); LYMPH # 2.4 10^3/uL (1.5-5.0); LYMPH % 29.5 % (24.0-44.0); MEAN CORPUSCULAR HEMOGLOBIN 31.7 pg (27.0-33.0); MEAN CORPUSCULAR HGB CONC 34.2 g/dl (32.0-36.5); MEAN CORPUSCULAR VOLUME 92.9 fl (80.0-96.0); MONO # 0.7 10^3/uL (0.0-0.8); NEUTROPHILS # 4.9 10^3/uL (1.5-8.5); NEUTROPHILS % 59.7 % (36.0-66.0); PLATELET COUNT, AUTOMATED 244 10^3/uL (150-450); RED BLOOD COUNT 4.79 10^6/uL (4.30-6.10); WHITE BLOOD COUNT 8.1 10^3/uL (4.0-10.0)
[2023-01-06 16:50] LABS: INR 0.97; PROTHROMBIN TIME 13.1 SECONDS (12.5-14.5)
[2023-01-06] MEDS ORDERED: THIAMINE 100 MG TAB PO SCH ×2 (17:00→21:00)
[2023-01-06 17:06] LABS: ETHYL ALCOHOL (ETHANOL) < 0.003 % (0.000-0.010); LIPASE 31 U/L (12-53)
[2023-01-06 17:08] LABS: ALBUMIN 4.4 G/DL (3.2-5.2); ALKALINE PHOSPHATASE 62 U/L (46-116); ALT/SGPT 83 U/L (7.0-40); AST/SGOT 50 U/L (<34); BILIRUBIN,DIRECT 0.2 MG/DL (<0.4); BILIRUBIN,TOTAL 0.6 MG/DL (0.3-1.2); BLOOD UREA NITROGEN 13 MG/DL (9-23); CALCIUM LEVEL 8.6 MG/DL (8.5-10.1); CARBON DIOXIDE LEVEL 26 MMOL/L (20-31); CHLORIDE LEVEL 108 MMOL/L (98-107); GLOMERULAR FILTRATION RATE > 60.0 (>60); GLUCOSE, FASTING 110 MG/DL (60-100); POTASSIUM SERUM 4.7 MMOL/L (3.5-5.1); SODIUM LEVEL 141 MMOL/L (136-145); TOTAL PROTEIN 6.8 G/DL (5.7-8.2)
[2023-01-06 17:34] LABS: METHADONE URINE NEGATIVE (NEGATIVE)
[2023-01-06 17:35] LABS: AMPHETAMINES LEVEL URINE NEGATIVE (NEGATIVE); BARBITURATES URINE NEGATIVE (NEGATIVE); BENZODIAZEPINES URINE NEGATIVE (NEGATIVE); COCAINE METABOLITE URINE NEGATIVE (NEGATIVE); OPIATES URINE NEGATIVE (NEGATIVE); PHENCYCLIDINE URINE NEGATIVE (NEGATIVE)
[2023-01-06] MEDS ORDERED: LISI10TA22 PO (17:42)
[2023-01-06 17:44] LABS: CANNABINOIDS URINE POSITIVE (NEGATIVE)
[2023-01-06] MEDS ORDERED: HOME MED LIST COMPLETE! XX SCH (18:35)
[2023-01-06 18:43] LABS: ACETAMINOPHEN LEVEL 2.7 UG/ML (10.0-20.0); SALICYLATE LEVEL < 3.0 MG/DL (<30)
[2023-01-06 18:46] LABS: THYROID STIMULATING HORMONE 0.596 uIU/ML (0.55-4.78)
[2023-01-06] MEDS ORDERED: NICOTINE 21MG/24HR 1 EA TRANSDERMAL TD PRN (19:30)
[2023-01-06] MEDS ORDERED: traZODone 50 MG TAB PO PRN (19:30)
[2023-01-06] MEDS ORDERED: diphenhydrAMINE 25MG CAP PO PRN (19:30)
[2023-01-06] MEDS ORDERED: OLANZapine ORAL DISINTEGRATING TAB 5MG PO PRN (19:30)
[2023-01-06] MEDS ORDERED: MOM 30ML SUSPENSION UDC PO PRN ×2 (19:30→21:30)
[2023-01-06] MEDS ORDERED: IBUPROFEN 400MG TAB PO PRN (19:30)
[2023-01-06] MEDS ORDERED: MAALOX 30 ML SUSP *UDC PO PRN ×2 (19:30→21:30)
[2023-01-06] MEDS ORDERED: ACETAMINOPHEN TAB 650MG DOSE (2X325MG) PO PRN (19:30)
[2023-01-06] MEDS ORDERED: amLODIPine 5 MG TAB PO ONE (19:50)
[2023-01-06 21:26] LABS: RSV AMPLIFICATION NEGATIVE (NEGATIVE)
[2023-01-06 22:07] VITALS: BP 143/81
[2023-01-06 22:10] VITALS: BP 143/81
[2023-01-06] MEDS: LORazepam 2 MG TAB PO PRN (22:53)
[2023-01-06] MEDS: IBUPROFEN 400MG TAB PO PRN (23:01)
[2023-01-06] MEDS: PRAZOSIN 1 MG CAP PO SCH (23:24)
[2023-01-07] VITALS (10 sets, daily range): BP systolic 120–152; BP diastolic 58–90
[2023-01-07] MEDS: THIAMINE 100 MG TAB PO SCH ×2 (08:21→20:40)
[2023-01-07] MEDS: MULTIVITAMINS/MINERALS THERAP 1 TAB PO SCH (08:21)
[2023-01-07] MEDS: FOLIC ACID 1MG TAB PO SCH (08:21)
[2023-01-07] MEDS ORDERED: MULTIVITAMINS/MINERALS THERAP 1 TAB PO SCH (09:00)
[2023-01-07] MEDS ORDERED: FOLIC ACID 1MG TAB PO SCH (09:00)
[2023-01-07] MEDS: NICOTINE 21MG/24HR 1 EA TRANSDERMAL TD PRN (09:03)
[2023-01-07] MEDS: ACETAMINOPHEN TAB 650MG DOSE (2X325MG) PO PRN (09:04)
[2023-01-07] MEDS ORDERED: ONDANSETRON 4MG TAB PO PRN (10:30)
[2023-01-07] MEDS: LORazepam 2 MG TAB PO PRN ×2 (10:34→14:12)
[2023-01-07] MEDS: chlordiazePOXIDE 25 MG CAP PO SCH ×2 (17:03→23:28)
[2023-01-07] MEDS: LURASIDONE HCL 40MG TAB (LATUDA) PO SCH (17:22)
[2023-01-07] MEDS: MIRTAZAPINE 15 MG TAB PO SCH (20:39)
[2023-01-07] MEDS: PRAZOSIN 1 MG CAP PO SCH (20:40)
[2023-01-07] MEDS ORDERED: PRAZOSIN 1 MG CAP PO SCH (21:00)
[2023-01-08] VITALS (10 sets, daily range): BP systolic 123–170; BP diastolic 65–100
[2023-01-08] MEDS: LORazepam 2 MG TAB PO PRN ×2 (05:47→11:21)
[2023-01-08] MEDS: chlordiazePOXIDE 25 MG CAP PO SCH ×3 (06:31→21:22)
[2023-01-08 07:18] LABS: CHOLESTEROL RISK RATIO 3.3 (<5); HDL CHOLESTEROL 50.8 MG/DL (>40); LDL CHOLESTEROL 86.4 MG/DL (<100); NON-HDL-C 117.2 MG/DL
[2023-01-08 07:50] LABS: HEMOGLOBIN A1c 5.1 % (4.0-6.0)
[2023-01-08] MEDS: FOLIC ACID 1MG TAB PO SCH (09:41)
[2023-01-08] MEDS: MULTIVITAMINS/MINERALS THERAP 1 TAB PO SCH (09:41)
[2023-01-08] MEDS: THIAMINE 100 MG TAB PO SCH ×2 (09:41→21:22)
[2023-01-08] MEDS: OLANZapine ORAL DISINTEGRATING TAB 5MG PO PRN (09:45)
[2023-01-08] MEDS: ACETAMINOPHEN TAB 650MG DOSE (2X325MG) PO PRN (12:09)
[2023-01-08] MEDS: LURASIDONE HCL 40MG TAB (LATUDA) PO SCH (17:29)
[2023-01-08] MEDS: MIRTAZAPINE 15 MG TAB PO SCH (21:22)
[2023-01-08] MEDS: PRAZOSIN 1 MG CAP PO SCH (21:26)
[2023-01-08] MEDS: diphenhydrAMINE 25MG CAP PO PRN (22:15)
[2023-01-08] MEDS: traZODone 50 MG TAB PO PRN (22:16)
[2023-01-09] MEDS: IBUPROFEN 400MG TAB PO PRN (05:50)
[2023-01-09 06:00] VITALS: BP 137/91
[2023-01-09 06:30] VITALS: BP 137/91
[2023-01-09] MEDS: OLANZapine ORAL DISINTEGRATING TAB 5MG PO PRN ×2 (08:25→18:13)
[2023-01-09 09:11] VITALS: BP 126/72
[2023-01-09] MEDS: FOLIC ACID 1MG TAB PO SCH (09:12)
[2023-01-09] MEDS: MULTIVITAMINS/MINERALS THERAP 1 TAB PO SCH (09:12)
[2023-01-09] MEDS: chlordiazePOXIDE 25 MG CAP PO SCH ×2 (09:12→20:51)
[2023-01-09 14:00] VITALS: BP 144/85
[2023-01-09 16:11] VITALS: BP 144/85
[2023-01-09] MEDS: NICOTINE 21MG/24HR 1 EA TRANSDERMAL TD PRN (18:14)
[2023-01-09] MEDS: diphenhydrAMINE 25MG CAP PO PRN (20:48)
[2023-01-09] MEDS: traZODone 50 MG TAB PO PRN (20:49)
[2023-01-09] MEDS: risperiDONE 1 MG TAB PO SCH (20:49)
[2023-01-09] MEDS: MIRTAZAPINE 15 MG TAB PO SCH (20:50)
[2023-01-09] MEDS: PRAZOSIN 1 MG CAP PO SCH (20:50)
[2023-01-09 22:00] VITALS: BP 140/90
[2023-01-10] VITALS (12 sets, daily range): BP systolic 132–180; BP diastolic 90–120
[2023-01-10] MEDS: risperiDONE 1 MG TAB PO SCH ×2 (08:59→20:44)
[2023-01-10] MEDS: FOLIC ACID 1MG TAB PO SCH (09:00)
[2023-01-10] MEDS: ACETAMINOPHEN TAB 650MG DOSE (2X325MG) PO PRN (09:00)
[2023-01-10] MEDS: MULTIVITAMINS/MINERALS THERAP 1 TAB PO SCH (09:00)
[2023-01-10] MEDS: LORazepam 2 MG TAB PO PRN ×3 (09:25→12:29)
[2023-01-10] MEDS ORDERED: diazePAM 5MG TABLET PO ONE (11:10)
[2023-01-10] MEDS ORDERED: IBUPROFEN 800 MG TAB PO ONE (11:40)
[2023-01-10] MEDS: DULoxetine 20MG CAP (CYMBALTA) PO SCH (11:48)
[2023-01-10] MEDS ORDERED: cloNIDine 0.1MG TABLET PO ONE (14:10)
[2023-01-10] MEDS: NICOTINE 21MG/24HR 1 EA TRANSDERMAL TD PRN (17:57)
[2023-01-10] MEDS: MIRTAZAPINE 15 MG TAB PO SCH (20:44)
[2023-01-10] MEDS: cloNIDine 0.1MG TABLET PO SCH (20:44)
[2023-01-10] MEDS: PRAZOSIN 1 MG CAP PO SCH (20:45)
[2023-01-11] VITALS (8 sets, daily range): BP systolic 130–146; BP diastolic 80–110
[2023-01-11] MEDS: ACETAMINOPHEN TAB 650MG DOSE (2X325MG) PO PRN ×2 (07:25→18:16)
[2023-01-11] MEDS: risperiDONE 1 MG TAB PO SCH ×2 (08:25→20:38)
[2023-01-11] MEDS: DULoxetine 20MG CAP (CYMBALTA) PO SCH (08:25)
[2023-01-11] MEDS: FOLIC ACID 1MG TAB PO SCH (08:27)
[2023-01-11] MEDS: cloNIDine 0.1MG TABLET PO SCH ×2 (08:27→20:38)
[2023-01-11] MEDS: MULTIVITAMINS/MINERALS THERAP 1 TAB PO SCH (08:27)
[2023-01-11] MEDS: LORazepam 2 MG TAB PO PRN (08:42)
[2023-01-11] MEDS: OLANZapine ORAL DISINTEGRATING TAB 5MG PO PRN (10:40)
[2023-01-11] MEDS: MIRTAZAPINE 15 MG TAB PO SCH (20:38)
[2023-01-11] MEDS: PRAZOSIN 1 MG CAP PO SCH (20:38)
[2023-01-11] MEDS: traZODone 50 MG TAB PO PRN (22:47)
[2023-01-12] MEDS: LORazepam 2 MG TAB PO PRN (01:47)
[2023-01-12 03:00] VITALS: BP 145/110
[2023-01-12 06:28] VITALS: BP 146/75
[2023-01-12 06:29] VITALS: BP 146/75
[2023-01-12 08:28] VITALS: BP 147/89
[2023-01-12] MEDS: risperiDONE 1 MG TAB PO SCH (08:29)
[2023-01-12] MEDS: MULTIVITAMINS/MINERALS THERAP 1 TAB PO SCH (08:29)
[2023-01-12] MEDS: DULoxetine 20MG CAP (CYMBALTA) PO SCH (08:29)
[2023-01-12] MEDS: FOLIC ACID 1MG TAB PO SCH (08:29)
[2023-01-12] MEDS: cloNIDine 0.1MG TABLET PO SCH ×2 (08:30→21:14)
[2023-01-12] MEDS ORDERED: IBUPROFEN 800 MG TAB PO ONE (10:35)
[2023-01-12] MEDS ORDERED: risperiDONE 2 MG TAB PO ONE (11:00)
[2023-01-12] MEDS ORDERED: clonazePAM 0.5 MG TAB PO ONE (11:00)
[2023-01-12 18:54] VITALS: BP 150/80
[2023-01-12] MEDS: MIRTAZAPINE 15 MG TAB PO SCH (21:14)
[2023-01-12] MEDS: PRAZOSIN 1 MG CAP PO SCH (21:14)
[2023-01-12] MEDS: risperiDONE 3 MG TAB PO SCH (21:14)
[2023-01-12] MEDS: traZODone 50 MG TAB PO PRN (21:14)
[2023-01-12 21:30] VITALS: BP 123/84
[2023-01-13 05:30] VITALS: BP 142/100
[2023-01-13 06:15] VITALS: BP 142/100
[2023-01-13 06:45] VITALS: BP 137/86
[2023-01-13 08:24] VITALS: BP 140/84
[2023-01-13] MEDS: cloNIDine 0.1MG TABLET PO SCH (08:25)
[2023-01-13] MEDS: risperiDONE 3 MG TAB PO SCH ×2 (08:25→20:35)
[2023-01-13] MEDS: MULTIVITAMINS/MINERALS THERAP 1 TAB PO SCH (08:26)
[2023-01-13] MEDS: DULoxetine 30MG CAPSULE (CYMBALTA) PO SCH (08:26)
[2023-01-13] MEDS: FOLIC ACID 1MG TAB PO SCH (08:26)
[2023-01-13] MEDS: diphenhydrAMINE 25MG CAP PO PRN (08:27)
[2023-01-13] MEDS: ACETAMINOPHEN TAB 650MG DOSE (2X325MG) PO PRN (08:28)
[2023-01-13] MEDS: clonazePAM 0.5 MG TAB PO PRN (14:54)
[2023-01-13 18:00] VITALS: BP 118/79
[2023-01-13] MEDS: PRAZOSIN 1 MG CAP PO SCH (20:34)
[2023-01-13] MEDS: MIRTAZAPINE 15 MG TAB PO SCH (20:35)
[2023-01-13] MEDS: traZODone 50 MG TAB PO PRN (21:45)
[2023-01-14 06:07] VITALS: BP 126/95
[2023-01-14] MEDS: clonazePAM 0.5 MG TAB PO PRN ×2 (06:12→20:43)
[2023-01-14 08:07] VITALS: BP 140/88
[2023-01-14] MEDS: risperiDONE 3 MG TAB PO SCH ×2 (08:08→20:43)
[2023-01-14] MEDS: DULoxetine 30MG CAPSULE (CYMBALTA) PO SCH (08:08)
[2023-01-14] MEDS: ACETAMINOPHEN TAB 650MG DOSE (2X325MG) PO PRN (08:09)
[2023-01-14 18:00] VITALS: BP 146/86
[2023-01-14] MEDS: IBUPROFEN 400MG TAB PO PRN (20:43)
[2023-01-14] MEDS: PRAZOSIN 1 MG CAP PO SCH (20:43)
[2023-01-14] MEDS: MIRTAZAPINE 15 MG TAB PO SCH (20:43)
[2023-01-14] MEDS: traZODone 50 MG TAB PO PRN (21:06)
[2023-01-15] MEDS: IBUPROFEN 400MG TAB PO PRN (05:58)
[2023-01-15 06:16] VITALS: BP 150/74
[2023-01-15 07:45] VITALS: BP 160/100
[2023-01-15] MEDS: risperiDONE 3 MG TAB PO SCH (07:45)
[2023-01-15] MEDS: DULoxetine 30MG CAPSULE (CYMBALTA) PO SCH (07:47)
[2023-01-15] MEDS: clonazePAM 0.5 MG TAB PO PRN (07:47)
[2023-01-15] MEDS ORDERED: LISI10TA22 PO (12:17)
[2023-01-15] MEDS ORDERED: RISP-10 PO (12:17)
[2023-01-15] MEDS ORDERED: CLON0.5T2 PO (12:17)
[2023-01-15] MEDS ORDERED: MIRT-10 PO (12:17)
[2023-01-15] MEDS ORDERED: NICO21PAT TD (12:17)
[2023-01-15] MEDS ORDERED: CYMB1CAP5 PO (12:17)
[2023-01-15] MEDS ORDERED: PRAZ5CAP PO (12:17)
== END 2023-01-15 13:35 | disposition home or self-care (01) | DRG 750 ==
LOC: EDBD 15:37 → M ED 15:37 → M PSY 19:30 → M ED 21:29
PROVIDERS: ADMIT Psychiatry & Neurology Psychiatry; ATTEND Student in an Organized Health Care Education/Training Program
DX: F25.1 Schizoaffective disorder, depressive type (principal); Z91.128 Patient's intentional underdosing of medication regimen for other reason; K76.0 Fatty (change of) liver, not elsewhere classified; F10.20 Alcohol dependence, uncomplicated; F43.10 Post-traumatic stress disorder, unspecified; Z79.899 Other long term (current) drug therapy; F17.200 Nicotine dependence, unspecified, uncomplicated; K21.9 Gastro-esophageal reflux disease without esophagitis; F12.90 Cannabis use, unspecified, uncomplicated; I16.0 Hypertensive urgency

== ENCOUNTER 2023-01-29 18:26 | Inpatient (IN) | payer MEDICAID, OTHER ==
[~2023-01-29] VITALS: Ht 180.3 cm; Wt 114.5 kg
[~2023-01-29 18:26] MED LIST changes: +CLON0.5T2 PO; -FOLIC ACID 1MG TAB PO SCH; +LISI10TA22 PO; +MIRT-10 PO; -MULTIVITAMINS/MINERALS THERAP 1 TAB PO SCH; +NICO21PAT TD; +PRAZ5CAP PO; +RISP-10 PO
[2023-01-29] MEDS ORDERED: ALPRAZolam 0.5 MG TAB PO ONE ×2 (19:50)
[2023-01-29 20:17] LABS: HEMATOCRIT 43.3 % (42.0-52.0); HEMOGLOBIN 15.3 g/dl (13.5-17.5); MEAN CORPUSCULAR HEMOGLOBIN 31.9 pg (27.0-33.0); MEAN CORPUSCULAR HGB CONC 35.3 g/dl (32.0-36.5); MEAN CORPUSCULAR VOLUME 90.4 fl (80.0-96.0); PLATELET COUNT, AUTOMATED 299 10^3/uL (150-450); RED BLOOD COUNT 4.79 10^6/uL (4.30-6.10); WHITE BLOOD COUNT 9.3 10^3/uL (4.0-10.0)
[2023-01-29 20:35] LABS: AMPHETAMINES LEVEL URINE NEGATIVE (NEGATIVE); BARBITURATES URINE NEGATIVE (NEGATIVE); BENZODIAZEPINES URINE NEGATIVE (NEGATIVE); COCAINE METABOLITE URINE NEGATIVE (NEGATIVE); METHADONE URINE NEGATIVE (NEGATIVE); OPIATES URINE NEGATIVE (NEGATIVE); PHENCYCLIDINE URINE NEGATIVE (NEGATIVE)
[2023-01-29 20:37] LABS: CANNABINOIDS URINE POSITIVE (NEGATIVE)
[2023-01-29 20:39] LABS: ACETAMINOPHEN LEVEL < 2.0 UG/ML (10.0-20.0); SALICYLATE LEVEL < 3.0 MG/DL (<30)
[2023-01-29] MEDS ORDERED: MIRTAZAPINE 15 MG TAB PO SCH (21:00)
[2023-01-29 21:46] LABS: ETHYL ALCOHOL (ETHANOL) 0.004 % (0.000-0.010)
[2023-01-29 21:47] LABS: ALBUMIN 4.2 G/DL (3.2-5.2); ALKALINE PHOSPHATASE 59 U/L (46-116); ALT/SGPT 72 U/L (7.0-40); AST/SGOT 37 U/L (<34); BILIRUBIN,DIRECT 0.1 MG/DL (<0.4); BILIRUBIN,TOTAL 0.5 MG/DL (0.3-1.2); BLOOD UREA NITROGEN 15 MG/DL (9-23); CALCIUM LEVEL 9.5 MG/DL (8.5-10.1); CARBON DIOXIDE LEVEL 24 MMOL/L (20-31); CHLORIDE LEVEL 105 MMOL/L (98-107); CREATININE FOR GFR 1.12 MG/DL (0.70-1.30); GLOMERULAR FILTRATION RATE > 60.0 (>60); GLUCOSE, FASTING 92 MG/DL (60-100); POTASSIUM SERUM 4.2 MMOL/L (3.5-5.1); SODIUM LEVEL 140 MMOL/L (136-145); TOTAL PROTEIN 6.7 G/DL (5.7-8.2)
[2023-01-29 21:50] LABS: THYROID STIMULATING HORMONE 3.428 uIU/ML (0.55-4.78)
[2023-01-29] MEDS ORDERED: PRAZOSIN 1 MG CAP PO ONE (22:45)
[2023-01-29] MEDS ORDERED: LISI10TA22 PO (23:27)
[2023-01-29] MEDS ORDERED: MIRT-62 PO (23:27)
[2023-01-29] MEDS ORDERED: RISP-10 PO (23:27)
[2023-01-29] MEDS ORDERED: IBUP-1720 PO (23:27)
[2023-01-29] MEDS ORDERED: NALT50TA4 PO (23:27)
[2023-01-29] MEDS ORDERED: PRAZ5CAP PO (23:27)
[2023-01-29] MEDS ORDERED: CLON0.5T2 PO (23:27)
[2023-01-29] MEDS ORDERED: DULO1CAP5 PO (23:27)
[2023-01-29] MEDS ORDERED: HOME MED LIST COMPLETE! XX SCH (23:30)
[2023-01-30] MEDS ORDERED: risperiDONE 3 MG TAB PO SCH (09:00)
[2023-01-30] MEDS: NICOTINE 14 MG/24 HR TRANSDERMAL TD SCH (09:00)
[2023-01-30] MEDS ORDERED: IBUPROFEN 600MG TAB PO PRN (10:25)
[2023-01-30] MEDS ORDERED: clonazePAM 0.5 MG TAB PO PRN (10:25)
[2023-01-30] MEDS ORDERED: risperiDONE 1 MG TAB PO SCH (10:29)
[2023-01-30] MEDS ORDERED: diphenhydrAMINE 25MG CAP PO PRN (15:30)
[2023-01-30] MEDS ORDERED: OLANZapine ORAL DISINTEGRATING TAB 5MG PO PRN (15:30)
[2023-01-30] MEDS ORDERED: ACETAMINOPHEN TAB 650MG DOSE (2X325MG) PO PRN (15:30)
[2023-01-30] MEDS ORDERED: MAALOX 30 ML SUSP *UDC PO PRN (15:30)
[2023-01-30] MEDS ORDERED: MOM 30ML SUSPENSION UDC PO PRN (15:30)
[2023-01-30 16:49] VITALS: BP 147/99; TEMP 97.3; O2SAT 96
[2023-01-30] MEDS ORDERED: MIRTAZAPINE 15 MG TAB PO SCH (21:00)
[2023-01-30] MEDS ORDERED: NALTREXONE 50 MG TAB PO SCH ×2 (21:00)
[2023-01-30] MEDS ORDERED: DULoxetine 30MG CAPSULE (CYMBALTA) PO SCH (21:00)
[2023-01-30] MEDS ORDERED: PRAZOSIN 1 MG CAP PO SCH (21:00)
[2023-01-30] MEDS: risperiDONE 3 MG TAB PO SCH (21:15)
[2023-01-30] MEDS: DULoxetine 30MG CAPSULE (CYMBALTA) PO SCH (21:15)
[2023-01-30] MEDS: traZODone 50 MG TAB PO PRN (21:15)
[2023-01-30] MEDS: MIRTAZAPINE 15 MG TAB PO SCH (21:16)
[2023-01-30] MEDS: IBUPROFEN 400MG TAB PO PRN (21:16)
[2023-01-30] MEDS: PRAZOSIN 1 MG CAP PO SCH (21:16)
[2023-01-30] MEDS ORDERED: LORazepam 2 MG TAB PO PRN (22:10)
[2023-01-30] MEDS: THIAMINE 100 MG TAB PO SCH (22:25)
[2023-01-31 05:28] VITALS: BP 147/99
[2023-01-31 06:49] VITALS: BP 145/90; TEMP 96.5; O2SAT 98
[2023-01-31] MEDS ORDERED: ONDANSETRON 4MG TAB PO PRN (08:55)
[2023-01-31] MEDS: NICOTINE 14 MG/24 HR TRANSDERMAL TD SCH (09:00)
[2023-01-31 09:11] VITALS: BP 116/68; TEMP 97
[2023-01-31] MEDS: MULTIVITAMINS/MINERALS THERAP 1 TAB PO SCH (09:59)
[2023-01-31] MEDS: risperiDONE 3 MG TAB PO SCH (09:59)
[2023-01-31] MEDS: FOLIC ACID 1MG TAB PO SCH (09:59)
[2023-01-31] MEDS: THIAMINE 100 MG TAB PO SCH ×2 (09:59→21:40)
[2023-01-31] MEDS ORDERED: clonazePAM 0.5 MG TAB PO ONE (11:15)
[2023-01-31 13:30] VITALS: BP 140/82
[2023-01-31 16:45] VITALS: BP 125/69; TEMP 97.4; O2SAT 100
[2023-01-31 21:30] VITALS: BP 147/93
[2023-01-31] MEDS: IBUPROFEN 400MG TAB PO PRN (21:39)
[2023-01-31] MEDS: clonazePAM 0.5 MG TAB PO SCH (21:39)
[2023-01-31] MEDS: DULoxetine 30MG CAPSULE (CYMBALTA) PO SCH (21:39)
[2023-01-31] MEDS: risperiDONE 2 MG TAB PO SCH (21:39)
[2023-01-31] MEDS: PRAZOSIN 1 MG CAP PO SCH (21:40)
[2023-01-31] MEDS: MIRTAZAPINE 15 MG TAB PO SCH (21:40)
[2023-01-31] MEDS: traZODone 50 MG TAB PO PRN (21:40)
[2023-02-01 05:30] VITALS: BP 121/81
[2023-02-01 06:11] VITALS: BP 121/81; TEMP 96.8; O2SAT 96
[2023-02-01] MEDS: IBUPROFEN 400MG TAB PO PRN (06:11)
[2023-02-01] MEDS: NICOTINE 14 MG/24 HR TRANSDERMAL TD SCH (09:00)
[2023-02-01] MEDS: MULTIVITAMINS/MINERALS THERAP 1 TAB PO SCH (09:24)
[2023-02-01] MEDS: THIAMINE 100 MG TAB PO SCH ×2 (09:24→21:23)
[2023-02-01] MEDS: FOLIC ACID 1MG TAB PO SCH (09:24)
[2023-02-01] MEDS: clonazePAM 0.5 MG TAB PO SCH ×2 (09:25→21:22)
[2023-02-01] MEDS: risperiDONE 2 MG TAB PO SCH ×2 (09:25→21:24)
[2023-02-01] MEDS ORDERED: LORazepam 0.5 MG TAB PO ONE (09:35)
[2023-02-01] MEDS ORDERED: BENZTROPINE 0.5 MG TAB PO PRN (09:35)
[2023-02-01 18:54] VITALS: BP 143/79; TEMP 98.2
[2023-02-01] MEDS: MIRTAZAPINE 15 MG TAB PO SCH (21:23)
[2023-02-01] MEDS: DULoxetine 30MG CAPSULE (CYMBALTA) PO SCH (21:23)
[2023-02-01] MEDS: traZODone 50 MG TAB PO PRN (21:23)
[2023-02-01] MEDS: PRAZOSIN 1 MG CAP PO SCH (21:23)
[2023-02-02 06:23] VITALS: BP 113/63; TEMP 97.9; O2SAT 94
[2023-02-02] MEDS: clonazePAM 0.5 MG TAB PO SCH ×2 (08:21→20:18)
[2023-02-02] MEDS: THIAMINE 100 MG TAB PO SCH (08:21)
[2023-02-02] MEDS: risperiDONE 2 MG TAB PO SCH ×2 (08:22→20:17)
[2023-02-02] MEDS: NICOTINE 14 MG/24 HR TRANSDERMAL TD SCH (08:23)
[2023-02-02] MEDS ORDERED: SUMAtriptan SUCCINATE 25 MG TAB PO ONE (10:00)
[2023-02-02] MEDS ORDERED: ISOVUE-370 76% 100ML VIAL As Ordered ONE (11:22)
[2023-02-02 18:00] VITALS: BP 150/87; TEMP 97
[2023-02-02] MEDS: IBUPROFEN 400MG TAB PO PRN (20:18)
[2023-02-02] MEDS: traZODone 50 MG TAB PO PRN (20:18)
[2023-02-02] MEDS: DULoxetine 30MG CAPSULE (CYMBALTA) PO SCH (20:18)
[2023-02-02] MEDS: MIRTAZAPINE 15 MG TAB PO SCH (20:18)
[2023-02-02] MEDS: PRAZOSIN 1 MG CAP PO SCH (20:19)
[2023-02-02] MEDS ORDERED: PILL CUTTER 1 EACH XX PRN (22:55)
[2023-02-03 06:46] VITALS: BP 172/104; TEMP 97.9; O2SAT 100
[2023-02-03] MEDS: clonazePAM 0.5 MG TAB PO SCH ×2 (07:09→20:49)
[2023-02-03] MEDS: DULoxetine 30MG CAPSULE (CYMBALTA) PO SCH (07:09)
[2023-02-03] MEDS: NICOTINE 14 MG/24 HR TRANSDERMAL TD SCH (08:12)
[2023-02-03] MEDS: risperiDONE 2 MG TAB PO SCH (08:13)
[2023-02-03 16:58] VITALS: TEMP 97.7; O2SAT 96
[2023-02-03] MEDS: MIRTAZAPINE 15 MG TAB PO SCH (20:47)
[2023-02-03] MEDS: PRAZOSIN 1 MG CAP PO SCH (20:47)
[2023-02-03] MEDS: IBUPROFEN 400MG TAB PO PRN (20:47)
[2023-02-03] MEDS: risperiDONE 1 MG TAB PO SCH (20:48)
[2023-02-03] MEDS: traZODone 50 MG TAB PO PRN (20:48)
[2023-02-03] MEDS ORDERED: DULoxetine 30MG CAPSULE (CYMBALTA) PO ONE (21:05)
[2023-02-04 06:57] VITALS: BP 131/87; TEMP 96.4; O2SAT 95
[2023-02-04] MEDS: NICOTINE 14 MG/24 HR TRANSDERMAL TD SCH (07:27)
[2023-02-04] MEDS: risperiDONE 1 MG TAB PO SCH ×2 (07:30→20:10)
[2023-02-04] MEDS: ARIPiprazole 15 MG TAB (AbiLIFY) PO SCH (07:30)
[2023-02-04] MEDS: clonazePAM 0.5 MG TAB PO SCH ×2 (07:30→20:08)
[2023-02-04 16:58] VITALS: BP 142/87; TEMP 97.7; O2SAT 96
[2023-02-04] MEDS: IBUPROFEN 400MG TAB PO PRN (20:09)
[2023-02-04 20:10] VITALS: BP 131/94
[2023-02-04] MEDS: DULoxetine 30MG CAPSULE (CYMBALTA) PO SCH (20:10)
[2023-02-04] MEDS: MIRTAZAPINE 15 MG TAB PO SCH (20:10)
[2023-02-04] MEDS: traZODone 50 MG TAB PO PRN (20:10)
[2023-02-04] MEDS: PRAZOSIN 1 MG CAP PO SCH (20:10)
[2023-02-05 06:38] VITALS: BP 121/70; TEMP 97.4; O2SAT 95
[2023-02-05] MEDS: ARIPiprazole 15 MG TAB (AbiLIFY) PO SCH (08:06)
[2023-02-05] MEDS: clonazePAM 0.5 MG TAB PO SCH (08:06)
[2023-02-05] MEDS: risperiDONE 1 MG TAB PO SCH (08:06)
[2023-02-05] MEDS: NICOTINE 14 MG/24 HR TRANSDERMAL TD SCH (08:07)
[2023-02-05] MEDS ORDERED: BENZ0.5T2 PO (11:52)
[2023-02-05] MEDS ORDERED: ABIL1TAB12 PO (11:52)
[2023-02-05] MEDS ORDERED: CLON0.5T2 PO (11:52)
== END 2023-02-05 14:11 | disposition home or self-care (01) | DRG 750 ==
LOC: M ED 18:26 → M ED INP 01-30 15:26 → M PSY 01-30 16:40
PROVIDERS: ADMIT Student in an Organized Health Care Education/Training Program; ATTEND Student in an Organized Health Care Education/Training Program
DX: F25.1 Schizoaffective disorder, depressive type (principal); R45.850 Homicidal ideations; R45.851 Suicidal ideations; K76.0 Fatty (change of) liver, not elsewhere classified; F10.20 Alcohol dependence, uncomplicated; F43.10 Post-traumatic stress disorder, unspecified; F41.9 Anxiety disorder, unspecified; Z79.899 Other long term (current) drug therapy; I10 Essential (primary) hypertension; F17.200 Nicotine dependence, unspecified, uncomplicated

== ENCOUNTER → 2023-03-06 | Outpatient (CLI) | payer MEDICAID, OTHER ==
[~2023-03-06] MED LIST changes: +ABIL1TAB12 PO; +BENZ0.5T2 PO; +DULO1CAP5 PO; +IBUP-1720 PO; +MIRT-62 PO; +NALT50TA4 PO
== END ==
LOC: M RAD 14:20
PROVIDERS: ATTEND Pediatrics
DX: Z72.89 Other problems related to lifestyle (principal)

== ENCOUNTER → 2024-05-05 | Outpatient (REF) | payer OTHER ==
[~2024-05-05] MED LIST changes: +DOXY-323 PO; -DOXY-443 PO; -MIRT-62 PO; +MIRT-88 PO; -RISP-10 PO; +RISP-106 PO; -RISP-9 PO; +RISP3TAB77 PO
[2024-05-05 16:39] LABS: BASO # 0.1 10^3/uL (0.0-0.2); BASO % 0.6 % (0.0-1.0); EOS # 0.3 10^3/uL (0.0-0.5); EOS % 3.5 % (0.0-3.0); HEMATOCRIT 50.8 % (42.0-52.0); HEMOGLOBIN 17.4 g/dl (13.5-17.5); LYMPH # 2.4 10^3/uL (1.5-5.0); LYMPH % 28.3 % (24.0-44.0); MEAN CORPUSCULAR HEMOGLOBIN 32.8 pg (27.0-33.0); MEAN CORPUSCULAR HGB CONC 34.3 g/dl (32.0-36.5); MEAN CORPUSCULAR VOLUME 95.8 fl (80.0-96.0); MONO # 0.7 10^3/uL (0.0-0.8); PLATELET COUNT, AUTOMATED 188 10^3/uL (150-450); WHITE BLOOD COUNT 8.5 10^3/uL (4.0-10.0)
[2024-05-05 16:54] LABS: HEMOGLOBIN A1c 5.4 % (4.0-6.0)
[2024-05-05 17:05] LABS: ALBUMIN 4.1 G/DL (3.2-5.2); ALKALINE PHOSPHATASE 85 U/L (46-116); ALT/SGPT 170 U/L (7.0-40); AST/SGOT 98 U/L (<34); BILIRUBIN,DIRECT 0.2 MG/DL (<0.4); BILIRUBIN,TOTAL 0.5 MG/DL (0.3-1.2); BLOOD UREA NITROGEN 12 MG/DL (9-23); CALCIUM LEVEL 9.3 MG/DL (8.5-10.1); CARBON DIOXIDE LEVEL 30 MMOL/L (20-31); CHLORIDE LEVEL 105 MMOL/L (98-107); CREATININE FOR GFR 0.99 MG/DL (0.70-1.30); GLOMERULAR FILTRATION RATE > 60.0 (>60); GLUCOSE, FASTING 100 MG/DL (60-100); POTASSIUM SERUM 4.7 MMOL/L (3.5-5.1); SODIUM LEVEL 140 MMOL/L (136-145); TOTAL PROTEIN 7.1 G/DL (5.7-8.2)
[2024-05-05 17:06] LABS: THYROID STIMULATING HORMONE 1.159 uIU/ML (0.55-4.78)
[2024-05-06 18:41] LABS: CREATININE, URINE 125.4 MG/DL
[2024-05-06 18:42] LABS: MALB URINE SIEMENS < 3.0 MG/L; MAU/CREAT RATIO 2.3 MCG/MG (0.0-30.0)
== END ==
LOC: M LAB REF 16:10
PROVIDERS: ATTEND Pediatrics
DX: I10 Essential (primary) hypertension (principal); F10.20 Alcohol dependence, uncomplicated; F32.A Depression, unspecified; Z76.89 Persons encountering health services in other specified circumstances

== ENCOUNTER → 2024-10-06 | Outpatient (REF) | payer OTHER ==
[~2024-10-06] MED LIST changes: -DOXY-323 PO; +DOXY-441 PO
[2024-10-06 17:34] LABS: BASO % 0.5 % (0.0-1.0); EOS # 0.1 10^3/uL (0.0-0.5); EOS % 1.8 % (0.0-3.0); HEMATOCRIT 47.6 % (42.0-52.0); HEMOGLOBIN 15.8 g/dl (13.5-17.5); LYMPH # 2.1 10^3/uL (1.5-5.0); LYMPH % 34.8 % (24.0-44.0); MEAN CORPUSCULAR HEMOGLOBIN 31.1 pg (27.0-33.0); MEAN CORPUSCULAR HGB CONC 33.2 g/dl (32.0-36.5); MEAN CORPUSCULAR VOLUME 93.7 fl (80.0-96.0); MONO # 0.9 10^3/uL (0.0-0.8); MONO % 13.9 % (2.0-8.0); NEUTROPHILS % 48.7 % (36.0-66.0); PLATELET COUNT, AUTOMATED 226 10^3/uL (150-450); RED BLOOD COUNT 5.08 10^6/uL (4.30-6.10); WHITE BLOOD COUNT 6.1 10^3/uL (4.0-10.0)
[2024-10-06 17:39] LABS: ALBUMIN 3.9 G/DL (3.2-5.2); ALKALINE PHOSPHATASE 75 U/L (40-129); ALT/SGPT 28 U/L (7.0-40); AST/SGOT 18 U/L (<34); BILIRUBIN,DIRECT 0.1 MG/DL (<0.4); BILIRUBIN,TOTAL 0.3 MG/DL (0.3-1.2); BLOOD UREA NITROGEN 9 MG/DL (9-23); CALCIUM LEVEL 9.1 MG/DL (8.5-10.1); CARBON DIOXIDE LEVEL 32 MMOL/L (20-31); CHLORIDE LEVEL 102 MMOL/L (98-107); CHOLESTEROL LEVEL 199 MG/DL (<200); CHOLESTEROL RISK RATIO 5.99 (<5); CREATININE FOR GFR 0.98 MG/DL (0.70-1.30); GLOMERULAR FILTRATION RATE > 60.0 (>60); GLUCOSE, FASTING 98 MG/DL (60-100); HDL CHOLESTEROL 33.2 MG/DL (>40); LDL CHOLESTEROL 124.4 MG/DL (<100); NON-HDL-C 165.8 MG/DL; POTASSIUM SERUM 4.4 MMOL/L (3.5-5.1); SODIUM LEVEL 140 MMOL/L (136-145); TOTAL PROTEIN 7.1 G/DL (5.7-8.2); TRIGLYCERIDES LEVEL 207 MG/DL (<150)
[2024-10-06 17:41] LABS: THYROID STIMULATING HORMONE 0.922 uIU/ML (0.55-4.78)
[2024-10-06 18:33] LABS: HEMOGLOBIN A1c 5.3 % (4.0-6.0)
== END ==
LOC: M LAB REF 16:34
PROVIDERS: ATTEND Pediatrics
DX: K76.0 Fatty (change of) liver, not elsewhere classified (principal); Z68.39 Body mass index [BMI] 39.0-39.9, adult; I10 Essential (primary) hypertension; F10.21 Alcohol dependence, in remission

== ENCOUNTER → 2025-05-15 | Outpatient (CLI) | payer OTHER ==
[2025-05-15 13:29] LABS: PLATELET COUNT, AUTOMATED 237 10^3/uL (150-450)
[2025-05-15 13:47] LABS: ESTIMATED AVERAGE GLUCOSE 114.0 MG/DL (60-110)
[2025-05-15 13:55] LABS: ALT/SGPT 28 U/L (7.0-40); AST/SGOT 17 U/L (<34); CALCIUM LEVEL 9.0 MG/DL (8.5-10.1); CARBON DIOXIDE LEVEL 30 MMOL/L (20-31); CHLORIDE LEVEL 106 MMOL/L (98-107); CHOLESTEROL LEVEL 200 MG/DL (<200); CHOLESTEROL RISK RATIO 7.22 (<5); CREATININE FOR GFR 1.04 MG/DL (0.70-1.30); GLOMERULAR FILTRATION RATE > 90.0 (>60); LDL CHOLESTEROL 125.5 MG/DL (<100); NON-HDL-C 172.3 MG/DL; POTASSIUM SERUM 4.4 MMOL/L (3.5-5.1); SODIUM LEVEL 140 MMOL/L (136-145); TRIGLYCERIDES LEVEL 234 MG/DL (<150)
== END ==
LOC: M LAB 12:49
DX: F25.1 Schizoaffective disorder, depressive type (principal)